=== PATIENT | male | born 1945 | race Caucasian/White ===

== ENCOUNTER 2020-10-25 06:53 | Inpatient (IN) | payer MEDICARE ==
[2020-10-25] MEDS ORDERED: Ondansetron PF 4 MG/2 ML Vial ONE ×2 (06:56→09:26)
[2020-10-25 07:30] LABS: #Eosinphils 0.2 thou/uL (0.0-0.7); #Lymphocytes 1.3 thou/uL (1.20-3.40); #Monocytes 0.8 thou/uL (0.11-0.59); #Neutrophils 6.9 thou/uL (1.40-6.50); %Basophils 0.3 % (0.0-1.0); %Eosinophils 2.1 % (0.0-10.0); %Lymphocytes 13.9 % (21.0-51.0); %Monocytes 8.5 % (0.0-10.0); %Neutrophils 75.2 % (42.0-75.0); Hemoglobin 7.8 g/dL (14.0-18.0); Mean Corpuscular HGB CONC 32.4 g/dL (32.0-36.0); Mean Corpuscular Hemoglobin 27.9 pg (27.0-31.0); Mean Corpuscular Volume 86.2 fL (78.0-98.0); Mean Platelet Volume 9.8 fL (7.4-10.4); Platelet Count 159 thou/uL (130-400); RBC Distribution Width 16.1 % (11.5-14.5); Red Blood Cell (RBC) Count 2.79 mill/uL (4.70-6.10); White Blood Cell (WBC) Count 9.2 thou/uL (4.8-10.8)
[2020-10-25] MEDS ORDERED: PHENYLEPHRINE-NS 100 MCG/ML 10 ML SYRINGE ONE (09:26)
[2020-10-25] MEDS ORDERED: Lidocaine 1% PF 5 ML VIAL ONE (09:26)
[2020-10-25] MEDS ORDERED: Metoclopramide HCl 10 MG/2 ML VIAL ONE (09:26)
[2020-10-25] MEDS ORDERED: PROPOFOL 200 MG/20 ML VIAL ONE (09:26)
[2020-10-25] MEDS ORDERED: ePHEDrine 50 MG/ML VIAL ONE (09:26)
[2020-10-25] MEDS ORDERED: Dextrose 50% Abboject 50 ML SYRINGE SLOW IVP PRN (10:37)
[2020-10-25 11:14] LABS: Hemoglobin 7.4 g/dL (14.0-18.0)
[2020-10-25] MEDS ORDERED: Metoclopramide HCl 10 MG/2 ML VIAL IVP SCH (12:15)
[2020-10-25] MEDS ORDERED: Famotidine/PF 20 mg/2ml Vial ONE (12:56)
[2020-10-25] MEDS ORDERED: Fentanyl 100 MCG/2 ML VIAL ONE ×2 (12:56→14:17)
--- NOTE | 2020-10-25 13:56 | CON ---
DATE OF CONSULTATION: 10/25/2020 REASON FOR CONSULTATION: Hematemesis, history of cirrhosis. CONSULTING PROVIDER: Dr. Rebollar. HISTORY OF PRESENT ILLNESS: The patient is a 75-year-old male with past medical history of GERD, anemia, diabetes, hypertension, pancreatitis, liver nodules, status post possible TACE procedure, and cirrhosis of the liver complicated by liver nodule/HCC, presenting with complaints of hematemesis. He states that he was in his usual state of health until yesterday afternoon when he experienced sudden onset nausea with vomiting of bright red blood. This was subsequently followed by an additional episode of hematemesis approximately 1 to 2 hours later that ultimately prompted him to seek healthcare assistance at [facility]. There, he was noted to have a decreased H and H and given his history of cirrhosis, he was ultimately transferred to [facility] in [place] for further evaluation. Upon further interviewing the patient, he states that he did have those two episodes of hematemesis yesterday in addition to an episode of hematemesis upon arrival in the ER here at [facility]. However, he did have one additional episode of vomiting here within the last 1 to 2 hours that was clear in coloration. He also endorses over the last month that he has been having increased abdominal bloating and fullness in addition to progressively worsening weakness during the same time period. He also noticed a change in his bowel habits having approximately 1 to 2 semi-solid bowel movements per day (Tumtum 5) with no difficulty with defecation. Otherwise, he denies any fevers, chills, overt melena, hematochezia, dysphagia, odynophagia, abdominal pain, constipation, weight loss, lower extremity edema, encephalopathy, or jaundice. Of note, he states his last upper endoscopy was approximately 1 to 2 years ago for the evaluation of acid reflux for which he had normal findings. He is deemed current currently being followed by Dr. Nolen in the [place] for his chronic liver disease. REVIEW OF SYSTEMS: A 10-category review of systems was obtained with all responses negative except for the pertinent positives as listed in HPI. PAST MEDICAL HISTORY: As per HPI. PAST SURGICAL HISTORY: Abdominal hernia repair, inguinal hernia repair, appendectomy, tonsillectomy, and bilateral cataract repair. FAMILY HISTORY: Denies any GI malignancies. SOCIAL HISTORY: Denies any tobacco, alcohol, or illicit drug use. OUTPATIENT MEDICATIONS: Reviewed. ALLERGIES: PENICILLIN. PHYSICAL EXAMINATION: VITAL SIGNS: Temperature 97.7, pulse 84, blood pressure 131/66, respiratory rate 20, and saturating 97% on room air. GENERAL: The patient was lying in bed, in no acute distress. Alert and oriented x4. HEENT/NECK: Normocephalic, atraumatic. Neck is supple. No JVD or scleral icterus noted. CARDIOVASCULAR: Regular rate and rhythm with no discernible murmurs, gallops, or rubs. RESPIRATORY: Clear to auscultation bilaterally with no discernible wheezes or rales. ABDOMEN: Normoactive bowel sounds. Soft. [id number] abdominal distention with no pain to palpation. Tympanic to percussion along all abdominal quadrants with possible shifting dullness. EXTREMITIES: 1+ bilateral lower extremity edema was seen extending to mid wiley. LABORATORY DATA: CBC with a white blood cell count of 9.2, hemoglobin 7.8, hematocrit 24, and platelets 151. INR 1.5. Chemistry with a sodium of 134, potassium 4.7, BUN 26, and creatinine 1.3. AST 37, ALT 56, total bilirubin 1.3. Calculated MELD score of 18. IMAGING DATA: No current GI imaging is available for review. ASSESSMENT AND PLAN: The patient is a 75-year-old male with past medical history of gastroesophageal reflux disease, anemia, diabetes, hypertension, pancreatitis, and cirrhosis of the liver complicated by possible hepatocellular carcinoma, status post TACE/radiation, bilateral lower extremity edema and possible ascites, presenting with hematemesis, concerning for an upper gastrointestinal bleeding. Hematemesis/upper gastrointestinal bleedin. The patient is presenting with approximately 3 episodes of hematemesis characterized as bright red blood with mild nausea associated with it. However, he denies any additional symptoms including abdominal pain, dysphagia, or odynophagia. He adds that he has been having a change in his bowel habits for the last month, which may be indicative of slow gastrointestinal bleeding during this particular point in time, but it is difficult to say at this juncture. With his history of cirrhosis, this is concerning for gastrointestinal bleeding with the differential including esophageal varices bleeding, erosive esophagitis, portal hypertensive gastropathy, arteriovenous malformation, Dieulafoy lesion, peptic ulcer disease, and/or gastrointestinal neoplasm. Given his negative esophagogastroduodenoscopy 1 to 2 years ago, the likelihood of malignancy is low. 2. Recommendations: a. We would continue to trend his H and H and transfuse as necessary to maintain an H and H of 04/04. b. Continue to monitor clinically for signs of active gastrointestinal bleeding. c. We would place the patient on a PPI drip as well as an octreotide drip in light of gastrointestinal bleeding in a cirrhotic patient. d. We would place the patient on ciprofloxacin 400 mg b.i.d. in light of gastrointestinal bleeding in a cirrhotic patient and his allergy to penicillin. e. Continue the patient on n.p.o. status. f. We would give metoclopramide 10 mg IV x1 to help remove any stomach contents or clotted blood that might interfere with esophagogastroduodenoscopy. g. We would plan for esophagogastroduodenoscopy later today for further evaluation. Cirrhosis: 1. The patient is presenting with a history of cirrhosis with a possible etiology being chronic alcohol abuse versus fatty liver (the patient could not discriminate between the two). At this point, he is coming in with decompensated disease as evidenced by the presence of bilateral lower extremity edema. Possible ascites and now upper gastrointestinal bleeding. His current MELD score is calculated at 18 with a Child-Andersen classification B. He is currently being followed by GI physician in the [place] (Dr. Nolen) with plans for possible liver transplantation at one point in time, but given the patient's advanced age and probable liver cancer, this was deemed not a candidate for liver transplant. His last upper endoscopy was 1 to 2 years ago with no evidence of esophageal varices. It is unknown when his last colonoscopy for screening was. 2. Recommendations: a. We would consider obtaining a right upper quadrant ultrasound during this admission for evaluation of possible liver nodules and/or extension of hepatocellular carcinoma contributing to worsening liver disease. b. We would avoid any hepatotoxic medications. c. We would defer outpatient management to his current GI specialist once discharged from the hospital. We will continue to follow. Please call with any questions. Job ID: [id number]
--- NOTE | 2020-10-25 14:56 | OP ---
DATE OF PROCEDURE: 10/25/2020 PROCEDURE PERFORMED: Esophagogastroduodenoscopy with band ligation. INDICATION FOR PROCEDURE: Hematemesis with a history of cirrhosis. DESCRIPTION OF PROCEDURE: After the risks and benefits of the procedure were explained to the patient including risks of bleeding, infection, perforation, reactions to anesthesia, aspiration, and/or pain, informed consent was obtained. The patient was then taken to the endoscopy suite, where general anesthesia was administered followed by endotracheal tube intubation. Once the patient was intubated and sedated, he was maneuvered into the left lateral decubitus position. Using the standard gastroscope, it was then advanced into the mouth with intubation of the esophagus, stomach, and the proximal small intestines with the findings listed below. The patient tolerated the procedure well with no immediate perioperative complications. On conclusion of the procedure, all equipment was removed from the patient. He was transferred to PACU in satisfactory condition. Given his positive COVID status, this was done in a negative pressure room and transferred to a negative pressure room within PACU. FINDINGS: Esophagus: Normal-appearing mucosa was seen in the proximal and mid esophagus; however, large varices were seen in the distal esophagus (grade 2) with innumerable red sherin sign overlying the esophageal mucosa and the esophageal varices in this region. There was also a mypu-fu-[id number] amount of bright red blood in this region as well, but upon irrigation and suctioning, no active bleeding was seen initially. On further examination of the red sherin and the esophageal varices, there were three columns of large esophageal varices, one of which exhibited a 1 to 2 fibrin nipple/clot overlying the varix itself, but initially did not have any evidence of bleeding. Given the increased risk of bleeding from the red sherin sign or this fibrin clot, the scope was then removed from the patient with the [employer] Super 7 band ligator attached to the scope. The scope was then advanced back into the distal esophagus, where one initial band was performed in the distal esophagus. After that initial placement of that one band, upon withdrawing the scope just slightly, a significant amount of bleeding was noted from the fibrin clot with bright red blood seen hitting the opposite wall of the esophagus, at which point, the active bleeding site then underwent band ligation with good hemostasis achieved and no further bleeding seen at the end of maneuver. One additional band was put in the distal esophagus overlying a larger area of red sherin sign given its high risk of bleeding in the future. At the end of these maneuvers, there was no active bleeding seen. Otherwise in the distal esophagus, there was no evidence of ulcerations or mass lesions. Stomach: Upon initial entry into the stomach, there was a axeu-[id number] amount of retained bright red blood that was seen throughout the gastric cardia, fundus, and proximal body. With aggressive irrigation and suctioning, adequate visualization of the gastric mucosa was then achieved of the mucosa seen. The mucosa exhibited an increased erythematous type appearance in a mosaic-type pattern extending from the cardia into the antrum that was mildly friable to the passage of the scope. Otherwise, there were no other underlying abnormalities. Normal-appearing mucosa was then seen within the gastric antrum and incisura. There was no evidence of erosions, ulcerations, mass lesions, or active bleeding. There was no evidence of gastric varices on gastric retroflexion as well. Duodenum: A 6 to 7 mm clean-based irregularly shaped cratered ulcer was seen in the duodenal bulb and extending into the duodenal sweep. However, it did not display any high-risk stigmata (no evidence of red spots, fibrin clot, adherent clot) and was fairly bland in appearance. Otherwise, the remainder of the mucosa within the duodenal bulb appeared normal. No biopsies were taken from this particular lesion. Normal-appearing mucosa was then seen within the second portion of the duodenum. IMPRESSION: 1. Large (grade 2) varices seen in the distal esophagus with innumerable red sherin sign and one varix exhibiting a fibrin clot that then later showed significant active bleeding, now status post band ligation x3 with good hemostasis achieved. 2. Moderate to severe portal hypertensive gastropathy. 3. A 6 to 7 mm clean-based ulceration within the duodenal bulb (unlikely to be the source of the patient's recent bleed). 4. No evidence of gastric varices. RECOMMENDATIONS: 1. We would continue to trend his H and H and transfuse as necessary to maintain H and H of 7/21. 2. Continue to monitor clinically for signs of active GI bleeding. 3. We will continue the patient on PPI drip for 24 hours, then transfer to pantoprazole 40 mg IV b.i.d. 4. We would continue the patient on the octreotide drip for total duration of therapy of 72 hours. 5. Continue ciprofloxacin 400 mg IV b.i.d. in light of a cirrhotic patient with active GI bleeding/infection prophylaxis. 6. We will keep the patient n.p.o. for now in case urgent repeat upper endoscopy is needed. Could consider advancing the patient's diet to a clear liquid diet tomorrow and advance as tolerated. 7. The patient will ultimately need to be placed on nonselective beta-blockade prior to discharge, but would hold on that for now until the patient's status is stabilized. We will continue to follow. Please call with any questions. Job ID: [id number]
[2020-10-25 15:34] LABS: SARS-CoV-2 NAA Rapid Test DETECTED (NotDetected)
[2020-10-25] MEDS: Dextrose 5% in Water 1,000 ML IV PRN (16:26)
[2020-10-25 16:32] VITALS: BMI 22.1
[2020-10-25] MEDS: Pantoprazole 80 MG in Sodium Chloride 0.9% 100 ML IVPB SCH (16:51)
[2020-10-25 19:00] LABS: Hemoglobin 7.4 g/dL (14.0-18.0)
[2020-10-25] MEDS: Morphine 4 MG/ML VIAL SLOW IVP PRN (23:16)
[2020-10-25] MEDS: Ondansetron PF 4 MG/2 ML Vial IVP PRN (23:43)
--- NOTE | 2020-10-26 00:14 | PDOC.HHP ---
Hospitalist HPI Vomiting blood History of Present Illness: Patient is 75-year-old male with PMH of DM type 2, HTN, Cirrhosis (with hx of ascites), fatty liver disease, and ?liver nodules who presents to the ED from [facility] with vomiting blood since yesterday. He said he vomited bright red blood 2 times yesterday and one time today. He denies abdominal pain, melena, hematochezia, or diarrhea. He states he used to drink alcohol occasionally, he stopped 1 year ago. He denies history of hepatitis C or hepatitis B. In the outside ED, Hgb: 7.7, INR: 1.5. Allergies/Adverse Reactions: Allergy/AdvReac Type Severity Reaction Status Date / Time Penicillins Allergy Verified 10/25/20 07:24 Home Medications: Medication Instructions Recorded Confirmed Type Esomeprazole Magnesium [Nexium 20 mg PO DAILY 10/25/20 10/25/20 History 24Hr] Ferrous Sulfate [Iron] 325 mg PO BID 10/25/20 10/25/20 History Insulin Detemir [Levemir Flextouch] 60 unit SQ DAILY 10/25/20 10/25/20 History Lisinopril 5 mg PO DAILY 10/25/20 10/25/20 History Psyllium Husk [Metamucil] 1 tab PO BID 10/25/20 10/25/20 History sitaGLIPtin Phos/metFORMIN HCl 1 each PO BID 10/25/20 10/25/20 History [Janumet 50-1,000 mg Tablet] Past History: PMHx: DM type 2, HTN, Cirrhosis (with hx of ascites), fatty liver disease, and ?liver nodules PSHx: Cataract surgery FHx: Father bladder cancer Social: Never smoker, denies drug use, used to drink alcohol occasionally but quit about a year ago Hospitalist HPI ROS Constitutional: denies: fever, chills Eyes: denies: vision change ENT: denies: throat pain Respiratory: denies: shortness of breath Cardiovascular: denies: chest pain Gastrointestinal: reports: nausea, vomiting. denies: abdominal pain, diarrhea, melena, hematochezia Genitourinary: denies: dysuria Skin: denies: rash Hospitalist Exam Vitals: Vital Signs (12 hours) Temp Pulse Ox 10/25/20 20:00 98 F 95 10/25/20 19:25 97 10/25/20 16:00 97.9 F 10/25/20 15:41 95 Weight Weight 150 lb Most Recent Monitor Data Heart Rate from ECG 68 NIBP 125/49 NIBP BP-Mean 74 Respiration from ECG 14 SpO2 98 General Appearance: NAD, awake alert Eye: PERRL ENT: moist mucosa Neck: supple Heart: RRR, no murmur Respiratory: CTAB, no tachypnea Gastrointestinal: soft, non-tender, normal bowel sounds Gastrointestinal - other findings: distended Extremities: 2+ LE edema Skin: normal turgor Neurological: normal sensation to touch, no weakness Musculoskeletal: normal strength Psychiatric: A&O x 3 Hospitalist Results Result Diagrams: 10/25/20 18:47 Lab results: Laboratory Last Values WBC 9.2 thou/uL (4.8-10.8) 10/25/20 07:22 RBC 2.79 mill/uL (4.70-6.10) L 10/25/20 07:22 Hgb 7.4 g/dL (14.0-18.0) L 10/25/20 18:47 Hct 23.3 % (42.0-52.0) L 10/25/20 18:47 MCV 86.2 fL (78.0-98.0) 10/25/20 07:22 MCH 27.9 pg (27.0-31.0) 10/25/20 07:22 MCHC 32.4 g/dL (32.0-36.0) 10/25/20 07:22 RDW 16.1 % (11.5-14.5) H 10/25/20 07:22 Plt Count 159 thou/uL (130-400) 10/25/20 07:22 MPV 9.8 fL (7.4-10.4) 10/25/20 07:22 Neutrophils % 75.2 % (42.0-75.0) H 10/25/20 07:22 Lymphocytes % 13.9 % (21.0-51.0) L 10/25/20 07:22 Monocytes % 8.5 % (0.0-10.0) 10/25/20 07:22 Eosinophils % 2.1 % (0.0-10.0) 10/25/20 07:22 Basophils % 0.3 % (0.0-1.0) 10/25/20 07: Neutrophils # 6.9 thou/uL (1.40-6.50) H 10/25/20 07:22 Lymphocytes # 1.3 thou/uL (1.20-3.40) 10/25/20 07:22 Monocytes # 0.8 thou/uL (0.11-0.59) H 10/25/20 07:22 Eosinophils # 0.2 thou/uL (0.0-0.7) 10/25/20 07: Basophils # 0.0 thou/uL (0.0-0.2) 10/25/20 07:22 POC Glucose 95 mg/dL (70-100) 10/25/20 20:01 Influenza A RNA INAAT Not Detected (NotDetected) 10/25/20 14:05 Influenza B RNA INAAT Not Detected (NotDetected) 10/25/20 14:05 SARS-CoV-2 Rap RNA(RT-PCR) DETECTED (NotDetected) A* 10/25/20 14:05 Blood Type O POSITIVE 10/25/20 07:45 Antibody Screen NEGATIVE 10/25/20 07:22 Hospitalist H&P A/P (1) GI bleed Code(s): K92.2 - GASTROINTESTINAL HEMORRHAGE, UNSPECIFIED Status: Acute Assessment and Plan: Patient presented with upper GI bleed. Likely from varices given his history of cirrhosis. H&H stable. VSS. Plan: -monitor H&H -protonix and octreotide drip -GI consulted (2) Decompensated hepatic cirrhosis Code(s): K72.90 - HEPATIC FAILURE, UNSPECIFIED WITHOUT COMA; K74.60 - UNSPECIFIED CIRRHOSIS OF LIVER Status: Chronic Assessment and Plan: cause not clear at this time. Possibly from fatty liver disease. He also reports liver nodules, not sure this is HCC. Plan: -liver US -GI consulted (3) DM type 2 (diabetes mellitus, type 2) Status: Chronic Assessment and Plan: -SS insulin ACHS (4) HTN (hypertension) Code(s): I10 - ESSENTIAL (PRIMARY) HYPERTENSION Status: Chronic Assessment and Plan: -hold home meds for now due to GI bleed
[2020-10-26] MEDS: Pantoprazole 80 MG in Sodium Chloride 0.9% 100 ML IVPB SCH ×2 (03:41→14:14)
[2020-10-26 03:57] LABS: #Eosinphils 0.2 thou/uL (0.0-0.7); #Monocytes 0.5 thou/uL (0.11-0.59); #Neutrophils 5.1 thou/uL (1.40-6.50); %Basophils 0.2 % (0.0-1.0); %Eosinophils 3.3 % (0.0-10.0); %Lymphocytes 14.2 % (21.0-51.0); %Monocytes 7.8 % (0.0-10.0); %Neutrophils 74.5 % (42.0-75.0); Hemoglobin 7.8 g/dL (14.0-18.0); Mean Corpuscular HGB CONC 32.7 g/dL (32.0-36.0); Mean Corpuscular Hemoglobin 28.2 pg (27.0-31.0); Mean Corpuscular Volume 86.3 fL (78.0-98.0); Mean Platelet Volume 9.8 fL (7.4-10.4); Platelet Count 139 thou/uL (130-400); RBC Distribution Width 16.1 % (11.5-14.5); Red Blood Cell (RBC) Count 2.76 mill/uL (4.70-6.10); White Blood Cell (WBC) Count 6.8 thou/uL (4.8-10.8)
[2020-10-26 04:13] LABS: Anion Gap 12 mmol/L (10-20); BUN (Urea Nitrogen) 22 mg/dL (8.4-25.7); Calc. Creatinine Clearance 48 mL/min (70-130); Calcium 7.7 mg/dL (7.8-10.44); Carbon Dioxide 20 mmol/L (23-31); Chloride 107 mmol/L (98-107); Glucose 189 mg/dL (83-110); Potassium 4.4 mmol/L (3.5-5.1); Sodium 135 mmol/L (136-145)
--- NOTE | 2020-10-26 07:55 | ULT ---
ULTRASOUND ABDOMEN LIMITED: (RIGHT UPPER QUADRANT) DATE: 10/26/2020 HISTORY: 75-year-old male with cirrhosis and nausea. COMPARISON: None FINDINGS: Moderate amount of free fluid in the right upper quadrant, and a large amount of free fluid in the ri ght lower quadrant. Gallbladder distended. Gallbladder wall thickness 3 mm. No gallstone identified. No definite sludge. Negative sonographic [place] sign. Common duct caliber 4 mm. Right kidney: No hydronephrosis Liver: Nodular margins. Pancreas: Mostly obscured. IMPRESSION: 1) ascites. 2) cirrhosis 3) no cholelithiasis identified
[2020-10-26] MEDS: Ondansetron PF 4 MG/2 ML Vial IVP PRN (08:35)
[2020-10-26] MEDS ORDERED: FLU VACC QS2020-21(65YR UP)/PF 240 MCG/0.7 ML SYRINGE IM ONE (09:00)
[2020-10-26] MEDS ORDERED: Furosemide 20 MG TAB PO SCH (10:30)
[2020-10-26] MEDS ORDERED: Spironolactone 25 MG TAB PO SCH (10:30)
[2020-10-26 10:34] LABS: Hemoglobin 8.4 g/dL (14.0-18.0)
--- NOTE | 2020-10-26 10:47 | PRG ---
DATE OF SERVICE: 10/26/2020 SUBJECTIVE: Mr. Vallejo has had no melena, no emesis since yesterday. He has been mildly nauseated. He is not having any abdominal pain, but his abdomen is distended with ascites. It does not appear he has been on any diuretics as an outpatient, but he does say that he had paracentesis in the past. He has been n.p.o. He has been afebrile and hemodynamically stable. No other complaints. OBJECTIVE: VITAL SIGNS: Temperature 97.7, blood pressure 137/76, pulse 95, 97% oxygen saturation on room air. GENERAL: Chronically ill, but nontoxic, sitting up in bed comfortably, in no distress. MENTAL: He is alert and oriented. He is quick with his responses, though a bit hazy on details of his history. HEART: Regular rate and rhythm. LUNGS: Clear to auscultation bilaterally. ABDOMEN: Distended with ascites, but not tense. Bowel sounds present. Soft, nontender to palpation. EXTREMITIES: No peripheral edema. LABORATORY STUDIES: Hemoglobin stable at 7.8, WBC 6.8, platelets 139. Sodium 135, potassium 4.4, BUN 22, creatinine 1.24. COVID PCR was positive. He is now on respiratory isolation. ASSESSMENT AND PLAN: 1. Esophageal varices with hemorrhage, status post variceal band ligation x3 with Dr. Lucero yesterday. There has been no further evidence of overt bleeding since the procedure. The patient will need to remain on octreotide drip for 72 hours after the procedure, which would mean continuing through at least the Friday evening. Plan is to start a nonselective beta anand on hospital discharge. 2. Duodenal ulcer. This was clean base, not felt to be the source of his bleeding. He is on IV pantoprazole, now switched to oral pantoprazole at discharge. 3. Ascites. The patient reports having had paracentesis in the past, but he had not been on any diuretics. I am going to go ahead and start low-dose Lasix and spironolactone today. 4. We will start him on a clear liquid diet possibly advance diet further tomorrow if he remains stable with no further evidence of repeat bleeding. Job ID: [id number]
--- NOTE | 2020-10-26 11:31 | PDOC.CONS ---
- Consultation Encounter Date: 10/26/20 Encounter Time: 11:30 Dictation # [id number] I ordered liver profile, lactic acid, thank you
--- NOTE | 2020-10-26 12:22 | CON ---
DATE OF CONSULTATION: 10/26/2020 REQUESTING PHYSICIAN: Kristina Vega MD. REASON FOR CONSULTATION: Requested for critical care management. The patient has been interviewed and examined in the intensive care unit. Chart has been reviewed and reports have been reviewed. 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 He has been followed for cirrhosis and has had a paracentesis. He has never had a bleeding complication. He was hospitalized last September for sepsis, was told he had a staph infection that came from the skin, was treated for 7 days in the hospital, says he had a kidney infection at that time in [place]. He was discharged and was feeling very weak and was found to have a hemoglobin of 4 at that time. He says he has not had any melenic stools. On the day prior to consultation, the patient presented with several episodes of gross hematemesis and underwent upper endoscopy on October 25, revealing bleeding esophageal varices, which were banded, gastric gastropathy and bleeding duodenal ulcer. He was placed on ciprofloxacin 400 mg IV b.i.d., Protonix and Protonix drip and octreotide. Today, the patient states that he has had no additional episodes of hematemesis, though he is having dry heaves. He continues to deny melena. His abdomen is very distended and he says he is approximately 2-pant sizes bigger than in the past. His serial hemoglobins have been 7.8, 7.4, and currently 8.4. Platelet count is 159, 139. He is typed and crossed and may have received blood. The patient also presents as COVID positive. He denies anosmia or loss of taste. He has intermittent headaches and sometimes takes nonsteroidal anti-inflammatory, perhaps approximately once a week. His was COVID positive approximately 18 days prior to admission. The exposure is unknown. He states he did not know he was COVID positive until his admission here. He denies any shortness of breath, but states that a dry cough had induced his vomiting when he had hematemesis. He denies dyspnea on exertion except related to his anemia. He denies any fever, chills, or sweats. He denies any alcohol use. He is a nonsmoker. PAST MEDICAL HISTORY: Diabetes, hypertension, nonalcoholic steatohepatitis with cirrhosis, high blood pressure, anemia, recent sepsis as described above, pancreatitis, gastroesophageal reflux disease. PAST SURGICAL HISTORY: Paracentesis, cataract surgery. FAMILY HISTORY: Bladder cancer. SOCIAL HISTORY: Nonsmoker, nondrinker. Does take nonsteroidal anti-inflammatories on occasion. REVIEW OF SYSTEMS: CONSTITUTIONAL: Denies fever, chills, or night sweats. EYES: Denies any yellowing. HEAD AND NECK: Occasional headaches. PULMONARY: Denies shortness of breath. Has nonproductive cough. No dyspnea on exertion, sleep apnea, asthma, emphysema, or bronchitis. CARDIAC: No chest pain. No history of angina or coronary artery disease. Hypertension, controlled. GASTROINTESTINAL: As stated in HPI. GENITOURINARY: As stated in HPI. He denies any dysuria, frequency, incomplete emptying, burning. SKIN: No new rashes. No yellowing. PHYSICAL EXAMINATION: GENERAL: The patient is awake, alert, oriented. He is in no acute distress. VITAL SIGNS: His temperature max is 98.6. He weighs is 150 pounds. BMI is 22.1. His heart rate is regular in the high 70s. His input and output is positive over the last 4 hours of admission of 706 cc. He is on drip as stated above. His urine output is adequate through Osborn catheter 200 mL. He is receiving Lasix p.r.n. and D5W p.r.n., octreotide, Cipro, pantoprazole drip, Aldactone, Reglan p.r.n., and Zofran p.r.n. HEENT: Normocephalic, atraumatic. Pupils equal, round, and reactive to light. No icterus. Conjunctivae are clear. Ears are intact. Nasal passages with good airflow. Oropharynx, tongue is midline. The lips have dried blood and are very dry. Color is normal. NECK: Supple. No adenopathy, thyromegaly, bruits, or masses. LUNGS: Clear to auscultation. CARDIAC: Regular rate and rhythm without murmur, rub, click, or gallop. ABDOMEN: Quiet, distended, tympanic, with positive fluid waves, and ballotable liver. EXTREMITIES: Without clubbing, cyanosis, or edema. No calf tenderness. LABORATORY DATA: Hemoglobin as stated above. White count has been normal. Maximum 9.2. Differential shows monocytosis of 8.5% with lymphopenia of 13.9%. Sodium is 135, potassium 4.4, chloride 107, bicarbonate 20, BUN 22, creatinine 1.2, glucose 189, and calcium 7.7. SARS rapid PCR is positive. Influenza nondetected. IMPRESSION: 1. Acute upper gastrointestinal bleed with blood loss anemia related to: a. Esophageal variceal bleed. b. Duodenal ulcer. c. Risk of re-bleeding is high after banding. 2. Portal hypertension secondary to nonalcoholic steatohepatitis cirrhosis, hepatic steatohepatitis, underlying ascites due to cirrhosis with abdominal distention. 3. Acute blood loss anemia due to upper gastrointestinal bleeding as stated above. 4. COVID positive, asymptomatic. 5. Diabetes with mild hyperglycemia, the patient is n.p.o. due to variceal bleed. 6. Metabolic acidosis, nonanion gap with possible acute kidney injury. 7. Acute kidney injury, creatinine 1.2. RECOMMENDATIONS: 1. Consideration for paracentesis with administration of albumin to avoid hypertension. 2. Maintain hemoglobin in the current range of 7 to 8, so as not to overdistend the esophageal varices. 3. GI to manage Protonix and octreotide drips. 4. Avoid overdiuresis and hepatorenal syndrome. 5. Consider midodrine for the treatment of liver disease and albumin for hypertension. 6. Monitor renal function and metabolic parameters, check lactic acidosis. 7. When comfortable that the patient is not re-bleeding, decrease number of blood draws. 8. Check coags. 9. Check liver profile. 10. I do not see a need at this time for aggressive treatment for COVID infection. He would be a candidate for possible monoclonal antibodies as an outpatient; however, at this time we do not that available for inpatients. Convalescent plasma is an option; however, he has unknown duration of positivity and he should not receive increase intravenous colloids unless absolutely necessary. 11. Supplemental oxygen as needed by nasal cannula. At this time, his oxygen saturations are 98% on room air. There is no indication for using Decadron for treatment of COVID in this patient. It also will increase his risks for bleeding. Thank you for the opportunity to assist in the consultation and comanagement of this patient in the intensive care unit. He is critically ill despite normal hemodynamics. At this time, he is at high risk of decompensation and therefore requires continued monitoring in the ICU until he is off the octreotide drip. Keep him n.p.o. for now. 1. Job ID: [id number]
[2020-10-26 14:01] LABS: INR-International Normal Ratio 1.4; Prothrombin Time 17.6 sec (12.0-14.7)
[2020-10-26 14:07] LABS: Lactic Acid 2.8 mmol/L (0.5-2.2)
[2020-10-26 14:12] LABS: ALT (SGPT) 28 U/L (8-55); AST (SGOT) 58 U/L (5-34); Alkaline Phosphatase 138 U/L (40-110); Bilirubin, Direct 0.6 mg/dL (0.1-0.3); Bilirubin, Total 1.4 mg/dL (0.2-1.2); Sodium 133 mmol/L (136-145)
[2020-10-26] MEDS: Octreotide Acetate 1,250 MCG in Sodium Chloride 0.9% 250 ML 250 ML IVPB SCH (14:14)
[2020-10-26] MEDS: Dextrose 5% in Water 1,000 ML IV PRN (14:22)
--- NOTE | 2020-10-26 17:42 | PDOC.HOSPP ---
- Subjective Encounter Date: 10/26/20 Encounter Time: 17:40 Subjective: f/u for UGI bleed due to esophageal varices post banding x 3/duodenal bulb ulcer receiving Octreotide/Protonix. - Objective Vital Signs & Weight: Vital Signs (12 hours) Temp Pulse Ox 10/26/20 12:00 98.5 F 10/26/20 08:00 97.7 F 10/26/20 07:31 96 10/26/20 06:38 96 Weight Admit Weight 150 lb Weight 150 lb Most Recent Monitor Data Heart Rate from ECG 72 NIBP 133/66 NIBP BP-Mean 88 Respiration from ECG 13 SpO2 97 I&O: 10/25/20 10/26/20 10/27/20 06:59 06:59 06:59 Intake Total 1100 202 Output Total 1450 1125 Balance -350 -923 Result Diagrams: 10/26/20 10:28 10/26/20 13:39 Additional Labs: Accuchecks 10/25/20 10/25/20 20:01 17:48 POC Glucose 95 99 Laboratory Tests 10/25/20 10/25/20 10/25/20 07:22 10:58 14:05 Hgb 7.8 L 7.4 L INR Influenza A RNA INAAT Not Detected Influenza B RNA INAAT Not Detected SARS-CoV-2 Rap RNA(RT-PCR) DETECTED A* 10/25/20 10/26/20 10/26/20 18:47 03:45 13:39 Hgb 7.4 L 7.8 L INR 1.4 Influenza A RNA INAAT Influenza B RNA INAAT SARS-CoV-2 Rap RNA(RT-PCR) Radiology Reviewed by me: Yes (ABD sono - + ascites/cirrhosis) EKG Reviewed by me: Yes (Tele - SR) Hospitalist ROS - Medication Medications: Active Medications Generic Name Dose Route Start Last Admin Trade Name Freq PRN Reason Stop Dose Admin Dextrose/Water 25 gm 10/25/20 10:37 10/25/20 16:26 Dextrose 50% Abboject 50 Ml Syringe SLOW IVP 25 gm PRN PRN Administration Hypoglycemia Octreotide Acetate 1,250 mcg/ 251.25 mls @ 5.025 mls/hr 10/25/20 07:30 10/26/20 14:14 Sodium Chloride IVPB 251.25 mls INF BLESSING Administration 25 MCG/HR Pantoprazole Sodium 80 mg/ 100 mls @ 10 mls/hr 10/25/20 07:30 10/26/20 14:14 Sodium Chloride IVPB 100 mls INF BLESSING Administration Ciprofloxacin/Dextrose 400 mg/ 200 mls @ 200 mls/hr 10/25/20 09:00 10/26/20 08:34 Device IVPB 200 mls Q12HR BLESSING Administration Dextrose/Water 1,000 mls @ 0 mls/hr 10/25/20 10:37 10/26/20 14:22 D5w IV 1,000 mls .Q0M PRN Administration Hypoglycemia As Directed Morphine Sulfate 4 mg 10/25/20 23:12 10/25/20 23:16 Morphine 4 Mg/Ml Vial SLOW IVP 4 mg Q4H PRN Administration Pain Ondansetron HCl 4 mg 10/25/20 09:40 10/26/20 08:35 Ondansetron Pf 4 Mg/2 Ml Vial IVP 4 mg Q6H PRN Administration Nausea/Vomiting Sodium Chloride 10 ml 10/25/20 09:00 10/26/20 08:34 Flush - Normal Saline 10 Ml Syringe IVF 10 ml Q12HR BLESSING Administration Hospitalist Exam Vitals: Vital Signs (12 hours) Temp Pulse Ox 10/26/20 12:00 98.5 F 10/26/20 08:00 97.7 F 10/26/20 07:31 96 10/26/20 06:38 96 Weight Admit Weight 150 lb Weight 150 lb Most Recent Monitor Data Heart Rate from ECG 72 NIBP 133/66 NIBP BP-Mean 88 Respiration from ECG 13 SpO2 97 General Appearance: NAD, awake alert Eye: PERRL, anicteric sclera ENT: normocephalic atraumatic, no oropharyngeal lesions Neck: supple, symmetric, no JVD, no thyromegaly, no lymphadenopathy Heart: RRR, no gallops, no rubs, normal peripheral pulses Heart - other findings: S1, S2 Respiratory: CTAB, no wheezes, no rales, no ronchi, normal chest expansion Gastrointestinal: soft, normal bowel sounds, no palpable masses, no rigidity Gastrointestinal - other findings: distention Extremities: no cyanosis, no clubbing, no edema Skin: normal turgor Neurological: cranial nerve grossly intact, no new deficit Musculoskeletal: normal tone, generalized weakness Psychiatric: normal affect, oriented to person, oriented to place Hosp A/P (1) Acute GI bleeding Code(s): K92.2 - GASTROINTESTINAL HEMORRHAGE, UNSPECIFIED Status: Acute Plan: Secondary to variceal source s/p banding x 3, continue Protonix/Octreotide gtt, serial H/H (2) Acute blood loss anemia Code(s): D62 - ACUTE POSTHEMORRHAGIC ANEMIA Status: Acute Plan: Serial H/H, resume FeSO4 (3) Esophageal varices with bleeding Code(s): I85.01 - ESOPHAGEAL VARICES WITH BLEEDING Status: Acute Plan: See above for mgmt (4) Decompensated hepatic cirrhosis Code(s): K72.90 - HEPATIC FAILURE, UNSPECIFIED WITHOUT COMA; K74.60 - UNSPECIFIED CIRRHOSIS OF LIVER Status: Chronic Plan: Continue Albumin/Octreotide/Lasix/Spironolactone/Cipro (5) DM type 2 (diabetes mellitus, type 2) Status: Chronic Plan: Resume home Lantus, hold Metformin, ADA, serial accuchecks, ISS - Plan continue antibiotics, social work specialist, DVT proph w/SCDs Continue supportive mgmt Continue Octreotide/Protonix gtt Continue Lasix/Albumin Clear liquids AM lab: CMP, CBC
[2020-10-26] MEDS: Ferrous Sulfate 325 MG TAB PO SCH (21:08)
[2020-10-26] MEDS: HumaLOG 300 UNITS/3 ML VIAL SC PRN (23:18)
[2020-10-27] MEDS: Pantoprazole 80 MG in Sodium Chloride 0.9% 100 ML IVPB SCH ×3 (00:50→09:21)
[2020-10-27 04:31] LABS: #Eosinphils 0.3 thou/uL (0.0-0.7); #Monocytes 0.8 thou/uL (0.11-0.59); #Neutrophils 5.6 thou/uL (1.40-6.50); %Basophils 0.2 % (0.0-1.0); %Eosinophils 3.9 % (0.0-10.0); %Monocytes 10.2 % (0.0-10.0); %Neutrophils 72.8 % (42.0-75.0); Hemoglobin 7.8 g/dL (14.0-18.0); Mean Corpuscular HGB CONC 31.6 g/dL (32.0-36.0); Mean Corpuscular Volume 85.3 fL (78.0-98.0); Mean Platelet Volume 9.9 fL (7.4-10.4); Platelet Count 170 thou/uL (130-400); White Blood Cell (WBC) Count 7.6 thou/uL (4.8-10.8)
[2020-10-27 04:57] LABS: Anion Gap 10 mmol/L (10-20); BUN (Urea Nitrogen) 23 mg/dL (8.4-25.7); Calc. Creatinine Clearance 45 mL/min (70-130); Calcium 7.9 mg/dL (7.8-10.44); Carbon Dioxide 25 mmol/L (23-31); Chloride 103 mmol/L (98-107); Glucose 90 mg/dL (83-110); Potassium 3.9 mmol/L (3.5-5.1); Sodium 134 mmol/L (136-145)
[2020-10-27] MEDS: Ferrous Sulfate 325 MG TAB PO SCH ×2 (08:43→19:39)
[2020-10-27] MEDS: Lisinopril 5 MG TAB PO SCH (08:43)
[2020-10-27] MEDS: Furosemide 20 MG TAB PO SCH (08:43)
[2020-10-27] MEDS: Spironolactone 25 MG TAB PO SCH (08:44)
[2020-10-27] MEDS: Ondansetron PF 4 MG/2 ML Vial IVP PRN (08:46)
[2020-10-27] MEDS ORDERED: Non-Formulary Item 1 EACH (Insulin Detemir [Levemir Flextouch] 100 UNIT/ML Insuln.Pen) SQ SCH (09:00)
[2020-10-27] MEDS ORDERED: INSULIN GLARGINE SC SCH (09:00)
[2020-10-27 09:32] LABS: Sodium 133 mmol/L (136-145)
[2020-10-27] MEDS ORDERED: Pantoprazole 80 MG, Admixture Fee 1 EACH in Sodium Chloride 0.9% 100 ML IVPB SCH (11:30)
--- NOTE | 2020-10-27 11:54 | PDOC.HOSPP ---
- Subjective Encounter Date: 10/27/20 Encounter Time: 11:52 Subjective: Mr. Vallejo was seen today in follow-up of Esophageal varices. He is sitting up in bed, and has no complaints. - Objective Vital Signs & Weight: Vital Signs (12 hours) Temp Pulse BP Pulse Ox 10/27/20 08:43 73 127/70 10/27/20 08:00 92 L 10/27/20 06:42 93 L 10/27/20 04:00 98.1 F 10/27/20 02:32 96 10/27/20 00:00 98.2 F Weight Admit Weight 150 lb Weight 150 lb Most Recent Monitor Data Heart Rate from ECG 76 NIBP 127/70 NIBP BP-Mean 89 Respiration from ECG 12 SpO2 92 I&O: 10/26/20 10/27/20 10/28/20 06:59 06:59 06:59 Intake Total 1100 592 Output Total 1450 2925 Balance -350 -1713 Result Diagrams: 10/27/20 03:58 10/27/20 09:12 Additional Labs: Accuchecks 10/27/20 10/27/20 10/26/20 08:26 06:14 23:09 POC Glucose 139 H 114 H 265 H 10/26/20 18:01 POC Glucose 256 H Hospitalist ROS - Medication Medications: Active Medications Generic Name Dose Route Start Last Admin Trade Name Freq PRN Reason Stop Dose Admin Dextrose/Water 25 gm 10/25/20 10:37 10/25/20 16:26 Dextrose 50% Abboject 50 Ml Syringe SLOW IVP 25 gm PRN PRN Administration Hypoglycemia Ferrous Sulfate 325 mg 10/26/20 21:00 10/27/20 08:43 Ferrous Sulfate 325 Mg Tab PO 325 mg BID BLESSING Administration Furosemide 20 mg 10/27/20 09:00 10/27/20 08:43 Furosemide 20 Mg Tab PO 20 mg DAILY BLESSING Administration Octreotide Acetate 1,250 mcg/ 251.25 mls @ 5.025 mls/hr 10/25/20 07:30 10/26/20 14:14 Sodium Chloride IVPB 251.25 mls INF BLESSING Administration 25 MCG/HR Ciprofloxacin/Dextrose 400 mg/ 200 mls @ 200 mls/hr 10/25/20 09:00 10/27/20 08:44 Device IVPB 200 mls Q12HR BLESSING Administration Dextrose/Water 1,000 mls @ 0 mls/hr 10/25/20 10:37 10/26/20 14:22 D5w IV 1,000 mls .Q0M PRN Administration Hypoglycemia As Directed Insulin Human Lispro 0 units 10/25/20 10:37 10/26/20 23:18 Humalog 300 Units/3 Ml Vial SC 4 unit .MILD SLIDING SCALE PRN Administration Mild Correctional Scale Lisinopril 5 mg 10/27/20 09:00 10/27/20 08:43 Lisinopril 5 Mg Tab PO 5 mg DAILY BLESSING Administration Morphine Sulfate 4 mg 10/25/20 23:12 10/25/20 23:16 Morphine 4 Mg/Ml Vial SLOW IVP 4 mg Q4H PRN Administration Pain Ondansetron HCl 4 mg 10/25/20 09:40 10/27/20 08:46 Ondansetron Pf 4 Mg/2 Ml Vial IVP 4 mg Q6H PRN Administration Nausea/Vomiting Sodium Chloride 10 ml 10/25/20 09:00 10/27/20 08:57 Flush - Normal Saline 10 Ml Syringe IVF 10 ml Q12HR BLESSING Administration Spironolactone 50 mg 10/27/20 08:00 10/27/20 08:44 Spironolactone 25 Mg Tab PO 50 mg QAM-[facility] Administration Hospitalist Exam Vitals: Vital Signs (12 hours) Temp Pulse BP Pulse Ox 10/27/20 08:43 73 127/70 10/27/20 08:00 92 L 10/27/20 06:42 93 L 10/27/20 04:00 98.1 F 10/27/20 02:32 96 10/27/20 00:00 98.2 F Weight Admit Weight 150 lb Weight 150 lb Most Recent Monitor Data Heart Rate from ECG 76 NIBP 127/70 NIBP BP-Mean 89 Respiration from ECG 12 SpO2 92 General Appearance: NAD, awake alert Eye: PERRL, anicteric sclera Heart: RRR, no murmur, no gallops, no rubs, normal peripheral pulses Respiratory: CTAB, no wheezes, no rales, no ronchi, normal chest expansion, no tachypnea Gastrointestinal: soft (Abdominal distention.) Extremities: no cyanosis, 1+ LE edema Hosp A/P (1) Acute blood loss anemia Code(s): D62 - ACUTE POSTHEMORRHAGIC ANEMIA Status: Acute (2) Esophageal varices with bleeding Code(s): I85.01 - ESOPHAGEAL VARICES WITH BLEEDING Status: Acute (3) DM type 2 (diabetes mellitus, type 2) Status: Chronic (4) Decompensated hepatic cirrhosis Code(s): K72.90 - HEPATIC FAILURE, UNSPECIFIED WITHOUT COMA; K74.60 - UNSPECIFIED CIRRHOSIS OF LIVER Status: Chronic (5) HTN (hypertension) Code(s): I10 - ESSENTIAL (PRIMARY) HYPERTENSION Status: Chronic - Plan * Esophageal Varices with bleed- continue Octreotide drip, and Protonix IV * He diet has been advanced * Transfuse to keep hgb between 7 and 8. * Cirrhosis with ascites- agree with therapeutic paracentesis, and continue Prophylaxis for SBP with Cipro * HTN- blood pressure is low normal- start a non-selective beta- anand when tolerated * DM- blood glucose is stable * Patient is stable for transfer out of the ICU
[2020-10-27] MEDS ORDERED: Lidocaine 1% PF 5 ML VIAL ONE (12:22)
[2020-10-27] MEDS ORDERED: Sodium Bicarbonate 2.5 MEQ/5 ML VIAL ONE (12:22)
--- NOTE | 2020-10-27 12:25 | PRG ---
DATE OF SERVICE: 10/27/2020 SUBJECTIVE: Mr. Vallejo is feeling well. He has had no melena or hematemesis. He has remained hemodynamically stable. Abdomen remains distended. He is breathing well. He is tolerating his liquid diet. OBJECTIVE: VITAL SIGNS: Temperature is 98.1, pulse 73, blood pressure 127/70, and 92% oxygen saturation on room air. GENERAL: No acute distress. Sitting up in bed comfortably. HEART: Regular rate and rhythm. LUNGS: Clear to auscultation bilaterally. ABDOMEN: Distended with ascites, not tense. Bowel sounds are present. Nontender to palpation. EXTREMITIES: No peripheral edema. LABORATORY STUDIES: Hemoglobin stable at 7.8, WBC 7.6, and platelets 170. INR 1.4. Sodium 134, potassium 3.9, BUN 23, creatinine 1.33, glucose 139, calcium 7.9. COVID PCR positive. ASSESSMENT AND PLAN: 1. Esophageal varices with hemorrhage, status post variceal band ligation x3 with Dr. Lucero 2 days ago. There has been no further evidence of overt bleeding since the procedure. H and H remained stable. Stick with the plan to remain on octreotide drip for 72 hours after the procedure, which would mean continuing through at least Friday evening. The plan would be to start a nonselective beta anand thereafter, likely tomorrow evening, and continue this as secondary bleeding prophylaxis. 2. Duodenal ulcer. This was clean based and not felt to be the source of his bleeding. He is on IV pantoprazole. Switch to oral pantoprazole at discharge. 3. Ascites. Started low-dose Lasix and spironolactone yesterday. We will go ahead and order diagnostic/therapeutic paracentesis today. 4. Can advance his diet to a low-sodium diet. Job ID: [id number]
--- NOTE | 2020-10-27 14:40 | ULT ---
Paracentesis sonographic guided HISTORY: Symptomatic ascites. FINDINGS: After explaining the procedure and answering all questions, sonographic survey showed a lar ge amount of free fluid throughout the abdomen. Sterile technique, buffered local anesthesia, sonographic guidance, and a right lateral approach were used to carefully advance a 19-gauge Yueh needle and catheter into the free fluid. Catheter was left to drain a total volume of 3.15 L clear yellow liquid. Catheter was removed with minimal fluid remaining. Patient tolerated the procedure well. IMPRESSION : Technically successful sonographic guided paracentesis 3.15 L.
[2020-10-27 15:02] LABS: RBC Count-Automated (BF) 272 /cu.mm; WBC/Nucleated-Auto (BF) 199 uL
[2020-10-27 15:23] LABS: BF Color Yellow; Body Fluid Source Ascites Body Fluid; Clarity Hazy (Clear); Tube # EDTA
[2020-10-27 15:25] LABS: BF Segmented Neutrophils 12 %
[2020-10-27 15:27] LABS: Cell Count Non Hematic 60 %; Lymphocytes 27 %
[2020-10-27] MEDS: HumaLOG 300 UNITS/3 ML VIAL SC PRN ×2 (18:08→19:41)
[2020-10-28 04:33] LABS: #Basophils 0.1 thou/uL (0.0-0.2); #Eosinphils 0.3 thou/uL (0.0-0.7); #Lymphocytes 1.6 thou/uL (1.20-3.40); #Monocytes 1.1 thou/uL (0.11-0.59); #Neutrophils 5.6 thou/uL (1.40-6.50); %Basophils 0.8 % (0.0-1.0); %Eosinophils 3.7 % (0.0-10.0); %Lymphocytes 18.4 % (21.0-51.0); %Monocytes 12.8 % (0.0-10.0); %Neutrophils 64.4 % (42.0-75.0); Hemoglobin 7.8 g/dL (14.0-18.0); Mean Corpuscular HGB CONC 32.3 g/dL (32.0-36.0); Mean Corpuscular Hemoglobin 27.7 pg (27.0-31.0); Mean Corpuscular Volume 85.6 fL (78.0-98.0); Mean Platelet Volume 9.3 fL (7.4-10.4); Platelet Count 190 thou/uL (130-400); RBC Distribution Width 16.1 % (11.5-14.5); White Blood Cell (WBC) Count 8.7 thou/uL (4.8-10.8)
[2020-10-28 04:58] LABS: Anion Gap 13 mmol/L (10-20); BUN (Urea Nitrogen) 22 mg/dL (8.4-25.7); Calc. Creatinine Clearance 41 mL/min (70-130); Calcium 7.7 mg/dL (7.8-10.44); Carbon Dioxide 22 mmol/L (23-31); Chloride 104 mmol/L (98-107); Potassium 3.8 mmol/L (3.5-5.1); Sodium 135 mmol/L (136-145)
[2020-10-28 05:01] LABS: Glucose 44 mg/dL (83-110)
[2020-10-28] MEDS ORDERED: GUAIFENESIN SF SOLN 200 MG/10 ML UDCUP PO PRN (08:29)
[2020-10-28] MEDS ORDERED: Loratadine 10 MG TAB PO PRN (08:29)
[2020-10-28] MEDS ORDERED: Sodium Chloride 0.65% Nasal 44 ML BOT EA NARE PRN (08:29)
[2020-10-28] MEDS ORDERED: Bisacodyl 5 MG TAB PO PRN (08:29)
[2020-10-28] MEDS ORDERED: Calcium Carbonate 500 MG ChewTAB PO PRN (08:29)
[2020-10-28] MEDS ORDERED: Cepastat Lozenges 1 LOZ PO PRN (08:29)
[2020-10-28] MEDS ORDERED: Senokot S 8.6-50 MG TAB PO PRN (08:29)
[2020-10-28] MEDS ORDERED: Loperamide HCl 2 MG CAP PO PRN (08:29)
[2020-10-28] MEDS ORDERED: hydrALAZINE 20 MG/ML VIAL SLOW IVP PRN (08:29)
[2020-10-28] MEDS ORDERED: Melatonin 3 MG TAB PO PRN (08:30)
[2020-10-28] MEDS: Lisinopril 5 MG TAB PO SCH (08:50)
[2020-10-28] MEDS: Furosemide 20 MG TAB PO SCH (08:50)
[2020-10-28] MEDS: Spironolactone 25 MG TAB PO SCH (08:50)
[2020-10-28] MEDS: Ferrous Sulfate 325 MG TAB PO SCH ×2 (08:50→20:43)
[2020-10-28] MEDS: Zinc Sulfate 220 MG CAP PO SCH (09:01)
[2020-10-28] MEDS: Folic Acid 1 MG TAB PO SCH (09:01)
[2020-10-28] MEDS: Cyanocobalamin (Vitamin B-12) 1,000 MCG TAB PO SCH (09:01)
[2020-10-28] MEDS: Ascorbic Acid 500 mg Chewable Tablet PO SCH (09:01)
[2020-10-28] MEDS: Multivitamin W/ Minerals 1 TAB PO SCH (09:02)
[2020-10-28] MEDS: Pantoprazole 40 MG VIAL IVP SCH ×2 (10:34→20:44)
[2020-10-28] MEDS: Insulin Glargine 10 UNITS in Pre-Filled Syringe 1 EACH SC SCH ×2 (10:54→20:43)
--- NOTE | 2020-10-28 11:02 | PRG ---
DATE OF SERVICE: 10/28/2020 SUBJECTIVE: Mr. Vallejo is feeling well. He is not having any abdominal pain or nausea. He is tolerating his regular diet today. He did have paracentesis of 3.15 L yesterday, which went well. Octreotide drip will finish up this afternoon. OBJECTIVE: VITAL SIGNS: Temperature 98.1, pulse 68, blood pressure 103/53, 100% oxygen saturation on room air. GENERAL: No acute distress, sitting up in bed comfortably, eating lunch. HEART: Regular rate and rhythm. LUNGS: Clear to auscultation bilaterally. ABDOMEN: Less distended than yesterday. Bowel sounds present. Soft, nontender to palpation. EXTREMITIES: No peripheral edema. LABORATORY STUDIES: Hemoglobin stable at 7.8, WBC 8.7, platelets 190. INR 1.4. Sodium 135, potassium 3.8, BUN 22, creatinine 1.45, glucose 91. Ascites fluid from yesterday shows 199 WBC's, but only 12% neutrophils. Fluid total protein is 1.2. Ascites fluid culture shows no organisms, few RBC's, no growth at 24 hours. ASSESSMENT/PLAN: 1. Esophageal variceal hemorrhage, status post variceal band ligation x3 with Dr. Lucero 3 days ago. There has been no further evidence of overt bleeding since the procedure. H and H have remained stable. Stick with the plan to remain on octreotide drip through this evening. We will start him on a nonselective beta anand this evening as secondary bleeding prophylaxis. 2. Duodenal ulcer. This is clean based and not felt to be the source of his bleeding. Discharged on oral pantoprazole. 3. Ascites. He had a paracentesis of 3.15 L yesterday. Fluid is negative for SBP. He has been started on Lasix 20 mg daily and spironolactone 50 mg daily. Anticipate the patient could discharge from the hospital tomorrow morning if he remains stable overnight. He should follow up with his emt basic in the [place]. Job ID: [id number]
--- NOTE | 2020-10-28 11:07 | PDOC.HOSPP ---
- Subjective Encounter Date: 10/28/20 Encounter Time: 07:55 Subjective: Patient seen and examined bedside today, no overnight event, patient is doing relatively better, he does not have any ongoing bleeding, his vitals are stable, - Objective Vital Signs & Weight: Vital Signs (12 hours) Temp Pulse Resp BP BP Pulse Ox 10/28/20 08:50 68 10/28/20 08:00 98.1 F 73 18 103/53 L 100 10/28/20 06:01 68 16 121/61 99 10/28/20 03:40 97.5 F L 73 18 99/57 L 96 10/28/20 02:14 98.1 F 71 16 107/54 L 100 Weight Admit Weight 150 lb Weight 150 lb Most Recent Monitor Data Heart Rate from ECG 74 NIBP 132/74 NIBP BP-Mean 93 Respiration from ECG 18 SpO2 95 I&O: 10/27/20 10/28/20 10/29/20 06:59 06:59 06:59 Intake Total 592 1392 Output Total 2925 800 275 Balance -2333 592 -275 Result Diagrams: 10/28/20 03:53 10/28/20 03:53 Additional Labs: Accuchecks 10/28/20 10/28/20 10/27/20 08:02 04:30 19:28 POC Glucose 91 88 250 H 10/27/20 16:45 POC Glucose 267 H EKG Reviewed by me: Yes Hospitalist ROS - Review of Systems ENT: denies: ear pain, ear discharge, nose pain, nose discharge, nose congestion, mouth pain, mouth swelling, throat pain, throat swelling, other Respiratory: denies: cough, dry, shortness of breath, hemoptysis, SOB with excertion, pleuritic pain, sputum, wheezing, other Cardiovascular: denies: chest pain, palpitations, orthopnea, paroxysmal noc. dyspnea, edema, light headedness, other Gastrointestinal: denies: nausea, vomiting, abdominal pain, diarrhea, constipation, melena, hematochezia, other Genitourinary: denies: dysuria, frequency, incontinence, hematuria, retention, other - Medication Medications: Active Medications Generic Name Dose Route Start Last Admin Trade Name Freq PRN Reason Stop Dose Admin Ascorbic Acid 1,000 mg 10/28/20 09:00 10/28/20 09:01 Ascorbic Acid 500 Mg Chewable Tablet PO 1,000 mg DAILY BLESSING Administration Cyanocobalamin 1,000 mcg 10/28/20 09:00 10/28/20 09:01 Cyanocobalamin (Vitamin B-12) 1,000 Mcg Tab PO 1,000 mcg DAILY BLESSING Administration Dextrose/Water 25 gm 10/25/20 10:37 10/25/20 16:26 Dextrose 50% Abboject 50 Ml Syringe SLOW IVP 25 gm PRN PRN Administration Hypoglycemia Ferrous Sulfate 325 mg 10/26/20 21:00 10/28/20 08:50 Ferrous Sulfate 325 Mg Tab PO 325 mg BID BLESSING Administration Folic Acid 1 mg 10/28/20 09:00 10/28/20 09:01 Folic Acid 1 Mg Tab PO 1 mg DAILY BLESSING Administration Furosemide 20 mg 10/27/20 09:00 10/28/20 08:50 Furosemide 20 Mg Tab PO 20 mg DAILY BLESSING Administration Octreotide Acetate 1,250 mcg/ 251.25 mls @ 5.025 mls/hr 10/25/20 07:30 10/26/20 14:14 Sodium Chloride IVPB 251.25 mls INF BLESSING Administration 25 MCG/HR Ciprofloxacin/Dextrose 400 mg/ 200 mls @ 200 mls/hr 10/25/20 09:00 10/28/20 08:52 Device IVPB 200 mls Q12HR BLESSING Administration Dextrose/Water 1,000 mls @ 0 mls/hr 10/25/20 10:37 10/26/20 14:22 D5w IV 1,000 mls .Q0M PRN Administration Hypoglycemia As Directed Insulin Glargine 10 units/ 0.1 mls @ 0 mls/hr 10/28/20 09:00 10/28/20 10:54 Miscellaneous Medication SC 0.1 mls QAM BLESSING Administration Iron/Minerals/Multivitamins 1 tab 10/28/20 09:00 10/28/20 09:02 Multivitamin W/ Minerals 1 Tab PO 1 tab DAILY BLESSING Administration Lisinopril 5 mg 10/27/20 09:00 10/28/20 08:50 Lisinopril 5 Mg Tab PO 5 mg DAILY BLESSING Administration Morphine Sulfate 4 mg 10/25/20 23:12 10/25/20 23:16 Morphine 4 Mg/Ml Vial SLOW IVP 4 mg Q4H PRN Administration Pain Ondansetron HCl 4 mg 10/25/20 09:40 10/27/20 08:46 Ondansetron Pf 4 Mg/2 Ml Vial IVP 4 mg Q6H PRN Administration Nausea/Vomiting Pantoprazole Sodium 40 mg 10/28/20 09:00 10/28/20 10:34 Pantoprazole 40 Mg Vial IVP Not Given Q12HR BLESSING Sodium Chloride 10 ml 10/25/20 09:00 10/28/20 09:00 Flush - Normal Saline 10 Ml Syringe IVF 10 ml Q12HR BLESSING Administration Spironolactone 50 mg 10/27/20 08:00 10/28/20 08:50 Spironolactone 25 Mg Tab PO 50 mg QAM-WM BLESSING Administration Zinc Sulfate 220 mg 10/28/20 09:00 10/28/20 09:01 Zinc Sulfate 220 Mg Cap PO 220 mg DAILY BLESSING Administration Hospitalist Exam Vitals: Vital Signs (12 hours) Temp Pulse Resp BP BP Pulse Ox 10/28/20 08:50 68 10/28/20 08:00 98.1 F 73 18 103/53 L 100 10/28/20 06:01 68 16 121/61 99 10/28/20 03:40 97.5 F L 73 18 99/57 L 96 10/28/20 02:14 98.1 F 71 16 107/54 L 100 Weight Admit Weight 150 lb Weight 150 lb Most Recent Monitor Data Heart Rate from ECG 74 NIBP 132/74 NIBP BP-Mean 93 Respiration from ECG 18 SpO2 95 General Appearance: NAD, awake alert Eye: PERRL, anicteric sclera ENT: normocephalic atraumatic, no oropharyngeal lesions Neck: supple, symmetric, no JVD, no thyromegaly Heart: RRR, no murmur, no gallops, no rubs Respiratory: no wheezes, no rales, no ronchi Gastrointestinal: soft, non-tender, non-distended, normal bowel sounds Gastrointestinal - other findings: Ascites noted Extremities: no cyanosis, no clubbing, no edema Skin: normal turgor, no lesions Neurological: no focal deficits Musculoskeletal: normal tone, normal strength Psychiatric: normal affect, normal behavior Hosp A/P (1) Acute GI bleeding Code(s): K92.2 - GASTROINTESTINAL HEMORRHAGE, UNSPECIFIED Status: Acute Plan: S/p upper endoscopy and esophageal variceal bleed in identified and ligated (2) Acute blood loss anemia Code(s): D62 - ACUTE POSTHEMORRHAGIC ANEMIA Status: Acute Plan: Patient did not require any blood transfusion during this admission, his H&H remained stable after acute episode (3) Esophageal varices with bleeding Code(s): I85.01 - ESOPHAGEAL VARICES WITH BLEEDING Status: Acute Plan: Due to cirrhosis of liver, patient required banding, patient was treated with octreotide drip, (4) GI bleed Code(s): K92.2 - GASTROINTESTINAL HEMORRHAGE, UNSPECIFIED Status: Acute Plan: Due to esophageal variceal bleed and duodenal ulcer (5) DM type 2 (diabetes mellitus, type 2) Status: Chronic Plan: (6) Decompensated hepatic cirrhosis Code(s): K72.90 - HEPATIC FAILURE, UNSPECIFIED WITHOUT COMA; K74.60 - UNSPECI FIED CIRRHOSIS OF LIVER Status: Chronic (7) HTN (hypertension) Code(s): I10 - ESSENTIAL (PRIMARY) HYPERTENSION Status: Chronic (8) Duodenal ulcer Status: Acute - Plan old records reviewed/req, continue antibiotics, DVT proph w/SCDs Currently patient is getting Cipro for SBP prophylaxis given GI bleed and cirrhosis Patient is also on octreotide drip which he will finish end of today, Today we will change Protonix 40 mg IV twice daily, Continue Lasix and Aldactone, will add low-dose of Corgard Discussed with GI Will consider discharging tomorrow We will repeat labs tomorrow
[2020-10-28] MEDS: HumaLOG 300 UNITS/3 ML VIAL SC PRN (12:39)
[2020-10-28] MEDS: Nadolol 40 MG TAB PO SCH (20:44)
[2020-10-28] MEDS: Octreotide Acetate 1,250 MCG in Sodium Chloride 0.9% 250 ML 250 ML IVPB SCH (22:05)
[2020-10-29 04:24] LABS: #Basophils 0.1 thou/uL (0.0-0.2); #Eosinphils 0.3 thou/uL (0.0-0.7); #Lymphocytes 1.6 thou/uL (1.20-3.40); #Monocytes 1.1 thou/uL (0.11-0.59); #Neutrophils 5.9 thou/uL (1.40-6.50); %Basophils 0.6 % (0.0-1.0); %Eosinophils 3.2 % (0.0-10.0); %Monocytes 12.1 % (0.0-10.0); %Neutrophils 66.1 % (42.0-75.0); Hemoglobin 8.3 g/dL (14.0-18.0); Mean Corpuscular HGB CONC 31.7 g/dL (32.0-36.0); Mean Corpuscular Hemoglobin 26.8 pg (27.0-31.0); Mean Corpuscular Volume 84.8 fL (78.0-98.0); Mean Platelet Volume 9.2 fL (7.4-10.4); Platelet Count 195 thou/uL (130-400); RBC Distribution Width 16.4 % (11.5-14.5); Red Blood Cell (RBC) Count 3.09 mill/uL (4.70-6.10); White Blood Cell (WBC) Count 8.9 thou/uL (4.8-10.8)
[2020-10-29 04:46] LABS: Anion Gap 12 mmol/L (10-20); BUN (Urea Nitrogen) 19 mg/dL (8.4-25.7); Calc. Creatinine Clearance 38 mL/min (70-130); Calcium 7.9 mg/dL (7.8-10.44); Carbon Dioxide 23 mmol/L (23-31); Chloride 102 mmol/L (98-107); Glucose 165 mg/dL (83-110); Potassium 4.2 mmol/L (3.5-5.1); Sodium 133 mmol/L (136-145)
[2020-10-29] MEDS: HumaLOG 300 UNITS/3 ML VIAL SC PRN ×2 (06:07→21:22)
[2020-10-29] MEDS: Morphine 4 MG/ML VIAL SLOW IVP PRN (06:15)
[2020-10-29] MEDS: Furosemide 20 MG TAB PO SCH (09:00)
[2020-10-29] MEDS: Lisinopril 5 MG TAB PO SCH (09:00)
[2020-10-29] MEDS: Ascorbic Acid 500 mg Chewable Tablet PO SCH (09:09)
[2020-10-29] MEDS: Cyanocobalamin (Vitamin B-12) 1,000 MCG TAB PO SCH (09:09)
[2020-10-29] MEDS: Zinc Sulfate 220 MG CAP PO SCH (09:09)
[2020-10-29] MEDS: Multivitamin W/ Minerals 1 TAB PO SCH (09:10)
[2020-10-29] MEDS: Folic Acid 1 MG TAB PO SCH (09:10)
[2020-10-29] MEDS: Ferrous Sulfate 325 MG TAB PO SCH ×2 (09:10→21:08)
[2020-10-29] MEDS: Pantoprazole 40 MG VIAL IVP SCH ×2 (09:11→21:08)
[2020-10-29] MEDS: Insulin Glargine 10 UNITS in Pre-Filled Syringe 1 EACH SC SCH ×2 (09:12→21:08)
--- NOTE | 2020-10-29 10:04 | PDOC.HOSPP ---
- Subjective Encounter Date: 10/29/20 Encounter Time: 08:10 Subjective: Patient seen and examined. No new complaints. No overnight events - Objective Vital Signs & Weight: Vital Signs (12 hours) Temp Pulse Resp BP Pulse Ox 10/29/20 08:00 98.2 F 61 18 87/51 L 96 10/29/20 03:40 98.3 F 59 L 16 93/50 L 98 Weight Admit Weight 150 lb Weight 150 lb Most Recent Monitor Data Heart Rate from ECG 74 NIBP 132/74 NIBP BP-Mean 93 Respiration from ECG 18 SpO2 95 I&O: 10/28/20 10/29/20 10/30/20 06:59 06:59 06:59 Intake Total 1392 Output Total 800 1700 Balance 592 -1700 Result Diagrams: 10/29/20 03:50 10/29/20 03:50 Additional Labs: Accuchecks 10/28/20 10/28/20 10/28/20 19:45 16:01 11:38 POC Glucose 183 H 174 H 213 H EKG Reviewed by me: Yes Hospitalist ROS - Review of Systems ENT: denies: ear pain, ear discharge, nose pain, nose discharge, nose congestion, mouth pain, mouth swelling, throat pain, throat swelling, other Respiratory: denies: cough, dry, shortness of breath, hemoptysis, SOB with excertion, pleuritic pain, sputum, wheezing, other Cardiovascular: denies: chest pain, palpitations, orthopnea, paroxysmal noc. dyspnea, edema, light headedness, other Gastrointestinal: denies: nausea, vomiting, abdominal pain, diarrhea, constipation, melena, hematochezia, other Genitourinary: denies: dysuria, frequency, incontinence, hematuria, retention, other Musculoskeletal: denies: neck pain, shoulder pain, arm pain, back pain, hand pain, leg pain, foot pain, other - Medication Medications: Active Medications Generic Name Dose Route Start Last Admin Trade Name Freq PRN Reason Stop Dose Admin Ascorbic Acid 1,000 mg 10/28/20 09:00 10/29/20 09:09 Ascorbic Acid 500 Mg Chewable Tablet PO 1,000 mg DAILY BLESSING Administration Cyanocobalamin 1,000 mcg 10/28/20 09:00 10/29/20 09:09 Cyanocobalamin (Vitamin B-12) 1,000 Mcg Tab PO 1,000 mcg DAILY BLESSING Administration Dextrose/Water 25 gm 10/25/20 10:37 10/25/20 16:26 Dextrose 50% Abboject 50 Ml Syringe SLOW IVP 25 gm PRN PRN Administration Hypoglycemia Ferrous Sulfate 325 mg 10/26/20 21:00 10/29/20 09:10 Ferrous Sulfate 325 Mg Tab PO 325 mg BID BLESSING Administration Folic Acid 1 mg 10/28/20 09:00 10/28/20 09:01 Folic Acid 1 Mg Tab PO 1 mg DAILY BLESSING Administration Furosemide 20 mg 10/27/20 09:00 10/28/20 08:50 Furosemide 20 Mg Tab PO 20 mg DAILY BLESSING Administration Ciprofloxacin/Dextrose 400 mg/ 200 mls @ 200 mls/hr 10/25/20 09:00 10/28/20 20:43 Device IVPB 200 mls Q12HR BLESSING Administration Dextrose/Water 1,000 mls @ 0 mls/hr 10/25/20 10:37 10/26/20 14:22 D5w IV 1,000 mls .Q0M PRN Administration Hypoglycemia As Directed Insulin Glargine 10 units/ 0.1 mls @ 0 mls/hr 10/28/20 21:00 10/28/20 20:43 Miscellaneous Medication SC 0.1 mls HS BLESSING Administration Insulin Glargine 10 units/ 0.1 mls @ 0 mls/hr 10/28/20 09:00 10/29/20 09:12 Miscellaneous Medication SC 0.1 mls QAM BLESSING Administration Insulin Human Lispro 0 units 10/28/20 08:32 10/29/20 06:07 Humalog 300 Units/3 Ml Vial SC 2 units .MODERATE SLIDING SC PRN Administration Moderate Correctional Scale Iron/Minerals/Multivitamins 1 tab 10/28/20 09:00 10/29/20 09:10 Multivitamin W/ Minerals 1 Tab PO 1 tab DAILY BLESSING Administration Lisinopril 5 mg 10/27/20 09:00 10/28/20 08:50 Lisinopril 5 Mg Tab PO 5 mg DAILY BLESSING Administration Morphine Sulfate 4 mg 10/25/20 23:12 10/29/20 06:15 Morphine 4 Mg/Ml Vial SLOW IVP 4 mg Q4H PRN Administration Pain Nadolol 20 mg 10/28/20 21:00 10/28/20 20:44 Nadolol 40 Mg Tab PO 20 mg HS BLESSING Administration Ondansetron HCl 4 mg 10/25/20 09:40 10/27/20 08:46 Ondansetron Pf 4 Mg/2 Ml Vial IVP 4 mg Q6H PRN Administration Nausea/Vomiting Pantoprazole Sodium 40 mg 10/28/20 09:00 10/29/20 09:11 Pantoprazole 40 Mg Vial IVP 40 mg Q12HR BLESSING Administration Sodium Chloride 10 ml 10/25/20 09:00 10/28/20 20:44 Flush - Normal Saline 10 Ml Syringe IVF 10 ml Q12HR BLESSING Administration Spironolactone 50 mg 10/27/20 08:00 10/28/20 08:50 Spironolactone 25 Mg Tab PO 50 mg QAM-WM BLESSING Administration Zinc Sulfate 220 mg 10/28/20 09:00 10/29/20 09:09 Zinc Sulfate 220 Mg Cap PO 220 mg DAILY BLESSING Administration Hospitalist Exam Vitals: Vital Signs (12 hours) Temp Pulse Resp BP Pulse Ox 10/29/20 08:00 98.2 F 61 18 87/51 L 96 10/29/20 03:40 98.3 F 59 L 16 93/50 L 98 Weight Admit Weight 150 lb Weight 150 lb Most Recent Monitor Data Heart Rate from ECG 74 NIBP 132/74 NIBP BP-Mean 93 Respiration from ECG 18 SpO2 95 General Appearance: NAD, awake alert Eye: PERRL, anicteric sclera ENT: normocephalic atraumatic, no oropharyngeal lesions Neck: supple, symmetric, no JVD, no thyromegaly Heart: no murmur, no gallops, no rubs Respiratory: CTAB, no wheezes, no rales, no ronchi Gastrointestinal: soft, non-tender, non-distended, normal bowel sounds Extremities: no clubbing, no edema Skin: normal turgor, no lesions Neurological: no focal deficits Musculoskeletal: normal tone, normal strength Psychiatric: normal affect, normal behavior Hosp A/P (1) Acute GI bleeding Code(s): K92.2 - GASTROINTESTINAL HEMORRHAGE, UNSPECIFIED Status: Acute (2) Acute blood loss anemia Code(s): D62 - ACUTE POSTHEMORRHAGIC ANEMIA Status: Acute (3) Esophageal varices with bleeding Code(s): I85.01 - ESOPHAGEAL VARICES WITH BLEEDING Status: Acute (4) GI bleed Code(s): K92.2 - GASTROINTESTINAL HEMORRHAGE, UNSPECIFIED Status: Acute (5) DM type 2 (diabetes mellitus, type 2) Status: Chronic (6) Decompensated hepatic cirrhosis Code(s): K72.90 - HEPATIC FAILURE, UNSPECIFIED WITHOUT COMA; K74.60 - UNSPECIFIED CIRRHOSIS OF LIVER Status: Chronic (7) HTN (hypertension) Code(s): I10 - ESSENTIAL (PRIMARY) HYPERTENSION Status: Chronic (8) Duodenal ulcer Status: Acute - Plan old records reviewed/req, continue antibiotics, social services director Discontinue octreotide drip Continue Protonix IV while in hospital Continue Cipro while in hospital, We will consider him discharged tomorrow or today depending upon the ride availability, will discuss with the social work Patient prefers to go home but because of his Covid positive status doubt he will be able to get any taxi or about ambulance transfer I am not certain and patient does not have any ride to go home
--- NOTE | 2020-10-29 10:06 | PDOC.DS.DS ---
Provider Date of Admission: 10/25/20 10:01 Date of Discharge: 10/31/20 Admitting Provider: Kristina Vega MD Consultations: Gastroentrology, Pulmonary Primary Care Physician: Vikas Dewitt MD Course Hospital Course: 75-year-old male with PMH of DM type 2, HTN, Cirrhosis (with hx of ascites), fat ty liver disease, and ?liver nodules who presents to the ED from [facility] with vomiting blood since yesterday. He said he vomited bright red blood 2 times yesterday and one time today. He denies abdominal pain, melena, hematochezia, or diarrhea Patient was admitted on October 25, 2020 with acute upper GI bleed, on admission his hemoglobin was 7.8 and remained in that range, gastroenterology was consulted, patient underwent upper endoscopy on the same day, patient was found with large varices in the distal esophagus which was ligated, patient was also found with moderate to severe portal hypertensive gastropathy, there was also clean-based duodenal ulcer, there was no gastric varices. Patient was admitted in ICU, he was treated with Protonix drip and octreotide drip, he was also given IV fluid, he was also given ciprofloxacin for SBP prophylaxis, While in hospital we also did paracentesis but negative for SBP, he is given medicine to reduce portal hypertension. 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 Patient is given oral medication p.o., patient developed a superficial thrombophlebitis while in hospital and patient will benefit with doxycycline Patient seen and examined bedside today, Resuscitation Status: 10/25/20 10:34 Resuscitation Status Routine Resuscitation Status: DNAR: NO Resuscitation Discussed with: Patient Lab Results: 10/29/20 03:50 10/29/20 03:50 Abnormal Lab Results - Last 48 hrs 10/27/20 14:07: Fluid Clarity Hazy H 10/28/20 03:53: Sodium 135 L, Carbon Dioxide 22 L, Creatinine 1.45 H, Calcium 7.7 L 10/28/20 03:53: RBC 2.80 L, Hgb 7.8 L, Hct 24.0 L, RDW 16.1 H, Lymphocytes % 18.4 L, Monocytes % 12.8 H, Monocytes # 1.1 H 10/29/20 03:50: Sodium 133 L, Creatinine 1.56 H 10/29/20 03:50: RBC 3.09 L, Hgb 8.3 L, Hct 26.2 L, MCH 26.8 L, MCHC 31.7 L, RDW 16.4 H, Lymphocytes % 18.0 L, Monocytes % 12.1 H, Monocytes # 1.1 H Microbiology - Entire Visit 10/27/20 14:07 Paracentesis fluid Body Fluid Culture - Preliminary Vitals: Vital Signs (12 hours) Temp Pulse Resp BP Pulse Ox 10/29/20 08:00 98.2 F 61 18 87/51 L 96 10/29/20 03:40 98.3 F 59 L 16 93/50 L 98 Weight Admit Weight 150 lb Weight 150 lb Most Recent Monitor Data Heart Rate from ECG 74 NIBP 132/74 NIBP BP-Mean 93 Respiration from ECG 18 SpO2 95 Physical Exam: The patient was seen and examined on the day of discharge. General Appearance: NAD, awake alert Eye: PERRL, anicteric sclera ENT: normocephalic atraumatic, no oropharyngeal lesions Neck: supple, symmetric, no JVD, no thyromegaly Respiratory: no wheezes, no rales, no ronchi Cardiovascular: RRR, no murmur, no gallops, no rubs Gastrointestinal: soft, non-tender, normal bowel sounds Gastrointestinal - other findings: Ascites noted Extremities: no cyanosis, no clubbing, no edema Skin: normal turgor, no lesions Neurological: no focal deficits Musculoskeletal: normal tone, normal strength PSYCH: normal affect, normal behavior Problem (1) Acute GI bleeding Code(s): K92.2 - GASTROINTESTINAL HEMORRHAGE, UNSPECIFIED Status: Acute (2) Acute blood loss anemia Code(s): D62 - ACUTE POSTHEMORRHAGIC ANEMIA Status: Acute (3) Esophageal varices with bleeding Code(s): I85.01 - ESOPHAGEAL VARICES WITH BLEEDING Status: Acute (4) GI bleed Code(s): K92.2 - GASTROINTESTINAL HEMORRHAGE, UNSPECIFIED Status: Acute (5) DM type 2 (diabetes mellitus, type 2) Status: Chronic (6) Decompensated hepatic cirrhosis Code(s): K72.90 - HEPATIC FAILURE, UNSPECIFIED WITHOUT COMA; K74.60 - UNSPECIFIED CIRRHOSIS OF LIVER Status: Chronic (7) HTN (hypertension) Code(s): I10 - ESSENTIAL (PRIMARY) HYPERTENSION Status: Chronic (8) Duodenal ulcer Status: Acute Plan Prescriptions: Spironolactone [Aldactone] 50 mg PO QAM-WM #60 tab Nadolol [Corgard] 20 mg PO DAILY #30 tab Folic Acid [Folvite] 1 mg PO DAILY #30 tab Furosemide [Lasix] 20 mg PO DAILY #30 tab Pantoprazole [Protonix] 40 mg PO BID #60 tab Multivitamin W/ Minerals [Theragran M] 1 tab PO DAILY #30 tab Cyanocobalamin (Vitamin B-12) [Vitamin B-12] 1,000 mcg PO DAILY #30 tab Ascorbic Acid [Vitamin C] 1,000 mg PO DAILY #30 tab Zinc Sulfate 220 mg PO DAILY #14 cap Home Medications: Medication Instructions Recorded Confirmed Type Ferrous Sulfate [Iron] 325 mg PO BID 10/25/20 10/25/20 History Insulin Detemir [Levemir Flextouch] 60 unit SQ DAILY 10/25/20 10/25/20 History Psyllium Husk [Metamucil] 1 tab PO BID 10/25/20 10/25/20 History Ascorbic Acid [Vitamin C] 1,000 mg PO DAILY #30 tab 10/29/20 Rx Cyanocobalamin (Vitamin B-12) 1,000 mcg PO DAILY #30 tab 10/29/20 Rx [Vitamin B-12] Folic Acid [Folvite] 1 mg PO DAILY #30 tab 10/29/20 Rx Furosemide [Lasix] 20 mg PO DAILY #30 tab 10/29/20 Rx Multivitamin W/ Minerals 1 tab PO DAILY #30 tab 10/29/20 Rx [Theragran M] Nadolol [Corgard] 20 mg PO DAILY #30 tab 10/29/20 Rx Pantoprazole [Protonix] 40 mg PO BID #60 tab 10/29/20 Rx Spironolactone [Aldactone] 50 mg PO QAM-WM #60 tab 10/29/20 Rx Zinc Sulfate 220 mg PO DAILY #14 cap 10/29/20 Rx Allergies: Penicillins Allergy (Verified 10/25/20 07:24) Activity:: Activity as Tolerated Nourishment:: Diabetic Diet, Low Sodium Diet Therapies:: Not Applicable Equipment/Supplies:: Not Applicable IV Therapy:: Not Applicable Referrals: Vikas Dewitt Chi, MD [Primary Care Provider] - Oziel Lucero MD [Active] - Disposition: HOME Quality CORE MEASURES:: N/A
[2020-10-29] MEDS: Spironolactone 25 MG TAB PO SCH (12:12)
[2020-10-29] MEDS: Nadolol 40 MG TAB PO SCH (21:08)
[2020-10-30] MEDS ORDERED: Dextrose 50% Abboject 50 ML SYRINGE ONE (05:42)
[2020-10-30] MEDS ORDERED: Ferrous Sulfate 325 MG TAB ONE (11:06)
[2020-10-30] MEDS ORDERED: Spironolactone 25 MG TAB ONE (11:06)
[2020-10-30] MEDS ORDERED: Furosemide 20 MG TAB ONE (11:07)
[2020-10-30] MEDS ORDERED: Folic Acid 1 MG TAB ONE (11:07)
[2020-10-30] MEDS ORDERED: Multivitamin W/ Minerals 1 TAB ONE (11:07)
[2020-10-30] MEDS ORDERED: Cyanocobalamin 1000 MCG/ML VIAL ONE (11:08)
[2020-10-30] MEDS ORDERED: Cyanocobalamin (Vitamin B-12) 1,000 MCG TAB ONE (11:08)
[2020-10-30] MEDS ORDERED: Lisinopril 5 MG TAB ONE (11:09)
[2020-10-30] MEDS ORDERED: Ascorbic Acid 500 mg Chewable Tablet ONE (11:09)
[2020-10-30] MEDS ORDERED: Zinc Sulfate 220 MG CAP ONE (11:10)
[2020-10-30] MEDS ORDERED: Ciprofloxacin Lactate/D5W 400 mg/200 ml Premix ONE (11:10)
[2020-10-30] MEDS: Ascorbic Acid 500 mg Chewable Tablet PO SCH (11:14)
[2020-10-30] MEDS: Ferrous Sulfate 325 MG TAB PO SCH (11:15)
[2020-10-30] MEDS: Spironolactone 25 MG TAB PO SCH (11:15)
[2020-10-30] MEDS: Zinc Sulfate 220 MG CAP PO SCH (11:16)
[2020-10-30] MEDS: Multivitamin W/ Minerals 1 TAB PO SCH (11:16)
[2020-10-30] MEDS: Lisinopril 5 MG TAB PO SCH (11:16)
[2020-10-30] MEDS: Cyanocobalamin (Vitamin B-12) 1,000 MCG TAB PO SCH (11:16)
[2020-10-30] MEDS: Folic Acid 1 MG TAB PO SCH (11:16)
[2020-10-30] MEDS: Furosemide 20 MG TAB PO SCH (11:16)
[2020-10-30] MEDS: Pantoprazole 40 MG VIAL IVP SCH (12:18)
--- NOTE | 2020-10-30 12:44 | PDOC.HOSPP ---
- Subjective Encounter Date: 10/30/20 Encounter Time: 07:45 Subjective: Patient seen and examined. No new complaints. No overnight events - Objective Vital Signs & Weight: Vital Signs (12 hours) Temp Pulse Resp BP Pulse Ox 10/30/20 11:16 57 L 10/30/20 07:56 98.1 F 57 L 19 123/59 L 95 Weight Admit Weight 150 lb Weight 150 lb Most Recent Monitor Data Heart Rate from ECG 74 NIBP 132/74 NIBP BP-Mean 93 Respiration from ECG 18 SpO2 95 I&O: 10/29/20 10/30/20 10/31/20 06:59 06:59 06:59 Output Total 1700 Balance -1700 Result Diagrams: 10/29/20 03:50 10/29/20 03:50 Additional Labs: Accuchecks 10/29/20 10/29/20 21:20 16:02 POC Glucose 284 H 179 H Hospitalist ROS - Review of Systems ENT: denies: ear pain, ear discharge, nose pain, nose discharge, nose congestion, mouth pain, mouth swelling, throat pain, throat swelling, other Respiratory: denies: cough, dry, shortness of breath, hemoptysis, SOB with excertion, pleuritic pain, sputum, wheezing, other Cardiovascular: denies: chest pain, palpitations, orthopnea, paroxysmal noc. dyspnea, edema, light headedness, other Gastrointestinal: denies: nausea, vomiting, abdominal pain, diarrhea, constipation, melena, hematochezia, other Genitourinary: denies: dysuria, frequency, incontinence, hematuria, retention, other Musculoskeletal: denies: neck pain, shoulder pain, arm pain, back pain, hand pain, leg pain, foot pain, other - Medication Medications: Active Medications Generic Name Dose Route Start Last Admin Trade Name Freq PRN Reason Stop Dose Admin Ascorbic Acid 1,000 mg 10/28/20 09:00 10/30/20 11:14 Ascorbic Acid 500 Mg Chewable Tablet PO 1,000 mg DAILY BLESSING Administration Cyanocobalamin 1,000 mcg 10/28/20 09:00 10/30/20 11:16 Cyanocobalamin (Vitamin B-12) 1,000 Mcg Tab PO 1,000 mcg DAILY BLESSING Administration Dextrose/Water 25 gm 10/25/20 10:37 10/25/20 16:26 Dextrose 50% Abboject 50 Ml Syringe SLOW IVP 25 gm PRN PRN Administration Hypoglycemia Ferrous Sulfate 325 mg 10/26/20 21:00 10/30/20 11:15 Ferrous Sulfate 325 Mg Tab PO 325 mg BID BLESSING Administration Folic Acid 1 mg 10/28/20 09:00 10/30/20 11:16 Folic Acid 1 Mg Tab PO 1 mg DAILY BLESSING Administration Furosemide 20 mg 10/27/20 09:00 10/30/20 11:16 Furosemide 20 Mg Tab PO 20 mg DAILY BLESSING Administration Ciprofloxacin/Dextrose 400 mg/ 200 mls @ 200 mls/hr 10/25/20 09:00 10/30/20 11:16 Device IVPB 200 mls Q12HR BLESSING Administration Dextrose/Water 1,000 mls @ 0 mls/hr 10/25/20 10:37 10/26/20 14:22 D5w IV 1,000 mls .Q0M PRN Administration Hypoglycemia As Directed Insulin Glargine 10 units/ 0.1 mls @ 0 mls/hr 10/28/20 21:00 10/29/20 21:08 Miscellaneous Medication SC 0.1 mls HS BLESSING Administration Insulin Glargine 10 units/ 0.1 mls @ 0 mls/hr 10/28/20 09:00 10/29/20 09:12 Miscellaneous Medication SC 0.1 mls QAM BLESSING Administration Insulin Human Lispro 0 units 10/28/20 08:32 10/29/20 06:07 Humalog 300 Units/3 Ml Vial SC 2 units .MODERATE SLIDING SC PRN Administration Moderate Correctional Scale Insulin Human Lispro 0 units 10/28/20 08:32 10/29/20 21:22 Humalog 300 Units/3 Ml Vial SC 3 unit .BEDTIME SLIDING SC PRN Administration Bedtime Correctional Scale Iron/Minerals/Multivitamins 1 tab 10/28/20 09:00 10/30/20 11:16 Multivitamin W/ Minerals 1 Tab PO 1 tab DAILY BLESSING Administration Lisinopril 5 mg 10/27/20 09:00 10/30/20 11:16 Lisinopril 5 Mg Tab PO 5 mg DAILY BLESSING Administration Morphine Sulfate 4 mg 10/25/20 23:12 10/29/20 06:15 Morphine 4 Mg/Ml Vial SLOW IVP 4 mg Q4H PRN Administration Pain Nadolol 20 mg 10/28/20 21:00 10/29/20 21:08 Nadolol 40 Mg Tab PO Not Given HS BLESSING Ondansetron HCl 4 mg 10/25/20 09:40 10/27/20 08:46 Ondansetron Pf 4 Mg/2 Ml Vial IVP 4 mg Q6H PRN Administration Nausea/Vomiting Pantoprazole Sodium 40 mg 10/28/20 09:00 10/30/20 12:18 Pantoprazole 40 Mg Vial IVP 40 mg Q12HR BLESSING Administration Senna/Docusate Sodium 2 tab 10/28/20 08:29 10/29/20 21:53 Senokot S 8.6-50 Mg Tab PO 2 tab BID PRN Administration Constipation Sodium Chloride 10 ml 10/25/20 09:00 10/30/20 11:17 Flush - Normal Saline 10 Ml Syringe IVF 10 ml Q12HR BLESSING Administration Spironolactone 50 mg 10/27/20 08:00 10/30/20 11:15 Spironolactone 25 Mg Tab PO 50 mg QAM-WM BLESSING Administration Zinc Sulfate 220 mg 10/28/20 09:00 10/30/20 11:16 Zinc Sulfate 220 Mg Cap PO 220 mg DAILY BLESSING Administration Hospitalist Exam Vitals: Vital Signs (12 hours) Temp Pulse Resp BP Pulse Ox 10/30/20 11:16 57 L 10/30/20 07:56 98.1 F 57 L 19 123/59 L 95 Weight Admit Weight 150 lb Weight 150 lb Most Recent Monitor Data Heart Rate from ECG 74 NIBP 132/74 NIBP BP-Mean 93 Respiration from ECG 18 SpO2 95 General Appearance: NAD, awake alert Eye: PERRL, anicteric sclera ENT: normocephalic atraumatic, no oropharyngeal lesions Neck: supple, symmetric, no JVD, no thyromegaly Heart: RRR, no murmur, no gallops, no rubs Respiratory: no wheezes, no rales, no ronchi Gastrointestinal: soft, non-tender, non-distended, normal bowel sounds Extremities: no cyanosis, no clubbing, no edema Skin: normal turgor, no lesions Neurological: no focal deficits Musculoskeletal: normal tone, normal strength Psychiatric: normal affect, normal behavior Hosp A/P (1) Acute GI bleeding Code(s): K92.2 - GASTROINTESTINAL HEMORRHAGE, UNSPECIFIED Status: Acute (2) Acute blood loss anemia Code(s): D62 - ACUTE POSTHEMORRHAGIC ANEMIA Status: Acute (3) Esophageal varices with bleeding Code(s): I85.01 - ESOPHAGEAL VARICES WITH BLEEDING Status: Acute (4) GI bleed Code(s): K92.2 - GASTROINTESTINAL HEMORRHAGE, UNSPECIFIED Status: Acute (5) DM type 2 (diabetes mellitus, type 2) Status: Chronic (6) Decompensated hepatic cirrhosis Code(s): K72.90 - HEPATIC FAILURE, UNSPECIFIED WITHOUT COMA; K74.60 - UNSPECIFIED CIRRHOSIS OF LIVER Status: Chronic (7) HTN (hypertension) Code(s): I10 - ESSENTIAL (PRIMARY) HYPERTENSION Status: Chronic (8) Duodenal ulcer Status: Acute - Plan old records reviewed/req Continue Protonix IV while in hospital Continue Cipro while in hospital, will consider discharge pending is ride arrangement
[2020-10-30] MEDS ORDERED: Ondansetron PF 4 MG/2 ML Vial ONE (14:50)
[2020-10-30] MEDS: Ondansetron PF 4 MG/2 ML Vial IVP PRN (14:54)
[2020-10-30] MEDS: HumaLOG 300 UNITS/3 ML VIAL SC PRN ×2 (18:04→21:32)
[2020-10-30] MEDS: Insulin Glargine 10 UNITS in Pre-Filled Syringe 1 EACH SC SCH (21:36)
[2020-10-31] MEDS: Ferrous Sulfate 325 MG TAB PO SCH ×3 (00:13→20:19)
[2020-10-31] MEDS: Pantoprazole 40 MG VIAL IVP SCH ×3 (00:13→09:41)
[2020-10-31] MEDS: Nadolol 40 MG TAB PO SCH ×2 (00:20→20:18)
[2020-10-31 04:36] LABS: #Eosinphils 0.2 thou/uL (0.0-0.7); #Monocytes 1.2 thou/uL (0.11-0.59); #Neutrophils 5.4 thou/uL (1.40-6.50); %Basophils 0.5 % (0.0-1.0); %Eosinophils 2.7 % (0.0-10.0); %Lymphocytes 22.4 % (21.0-51.0); %Monocytes 13.4 % (0.0-10.0); Mean Corpuscular HGB CONC 32.1 g/dL (32.0-36.0); Mean Corpuscular Hemoglobin 27.1 pg (27.0-31.0); Mean Corpuscular Volume 84.2 fL (78.0-98.0); Mean Platelet Volume 9.4 fL (7.4-10.4); Platelet Count 151 thou/uL (130-400); RBC Distribution Width 16.8 % (11.5-14.5); Red Blood Cell (RBC) Count 2.96 mill/uL (4.70-6.10); White Blood Cell (WBC) Count 8.8 thou/uL (4.8-10.8)
[2020-10-31 04:57] LABS: ALT (SGPT) 16 U/L (8-55); AST (SGOT) 32 U/L (5-34); Albumin 2.1 g/dL (3.4-4.8); Alkaline Phosphatase 118 U/L (40-110); Anion Gap 12 mmol/L (10-20); BUN (Urea Nitrogen) 19 mg/dL (8.4-25.7); Bilirubin, Total 1.1 mg/dL (0.2-1.2); Calc. Creatinine Clearance 37 mL/min (70-130); Calcium 7.8 mg/dL (7.8-10.44); Carbon Dioxide 22 mmol/L (23-31); Chloride 102 mmol/L (98-107); Globulin 5.4 g/dL (2.4-3.5); Glucose 153 mg/dL (83-110); Magnesium 1.4 mg/dL (1.6-2.6); Phosphorus 2.6 mg/dL (2.3-4.7); Protein, Total 7.5 g/dL (5.8-8.1); Sodium 132 mmol/L (136-145)
[2020-10-31] MEDS: HumaLOG 300 UNITS/3 ML VIAL SC PRN ×3 (06:35→21:31)
[2020-10-31] MEDS: Insulin Glargine 10 UNITS in Pre-Filled Syringe 1 EACH SC SCH ×3 (08:44→21:30)
[2020-10-31] MEDS: Zinc Sulfate 220 MG CAP PO SCH (08:48)
[2020-10-31] MEDS: Multivitamin W/ Minerals 1 TAB PO SCH (08:48)
[2020-10-31] MEDS: Lisinopril 5 MG TAB PO SCH ×2 (08:48→09:41)
[2020-10-31] MEDS: Spironolactone 25 MG TAB PO SCH (08:49)
[2020-10-31] MEDS: Ascorbic Acid 500 mg Chewable Tablet PO SCH (08:49)
[2020-10-31] MEDS: Furosemide 20 MG TAB PO SCH (08:50)
[2020-10-31] MEDS: Folic Acid 1 MG TAB PO SCH (08:50)
[2020-10-31] MEDS: Cyanocobalamin (Vitamin B-12) 1,000 MCG TAB PO SCH (08:50)
--- NOTE | 2020-10-31 11:23 | PDOC.HOSPP ---
- Subjective Encounter Date: 10/31/20 Encounter Time: 09:20 Subjective: Patient has left upper extremity swelling at IV site, no fever, - Objective Vital Signs & Weight: Vital Signs (12 hours) Temp Pulse Resp BP Pulse Ox 10/31/20 09:41 59 L 10/31/20 08:48 98.5 F 64 20 97/53 L 98 10/31/20 08:45 59 L Weight Admit Weight 150 lb Weight 150 lb Most Recent Monitor Data Heart Rate from ECG 74 NIBP 132/74 NIBP BP-Mean 93 Respiration from ECG 18 SpO2 95 Result Diagrams: 10/31/20 04:00 10/31/20 04:00 Additional Labs: Accuchecks 10/30/20 10/30/20 10/30/20 20:12 17:40 12:33 POC Glucose 231 H 233 H 262 H 10/30/20 10/30/20 10/30/20 07:51 06:44 05:35 POC Glucose 164 H 104 H 46 L* 10/28/20 10/27/20 03:44 23:00 POC Glucose 42 L* 107 H Hospitalist ROS - Review of Systems ENT: denies: ear pain, ear discharge, nose pain, nose discharge, nose congestion, mouth pain, mouth swelling, throat pain, throat swelling, other Respiratory: denies: cough, dry, shortness of breath, hemoptysis, SOB with excertion, pleuritic pain, sputum, wheezing, other Cardiovascular: denies: chest pain, palpitations, orthopnea, paroxysmal noc. dyspnea, edema, light headedness, other Gastrointestinal: denies: nausea, vomiting, abdominal pain, diarrhea, constipation, melena, hematochezia, other Genitourinary: denies: dysuria, frequency, incontinence, hematuria, retention, other Musculoskeletal: reports: arm pain. denies: neck pain, shoulder pain, back pain, hand pain, leg pain, foot pain, other Skin: denies: rash, lesions, cruzito, bruising, other - Medication Medications: Active Medications Generic Name Dose Route Start Last Admin Trade Name Freq PRN Reason Stop Dose Admin Ascorbic Acid 1,000 mg 10/28/20 09:00 10/31/20 08:49 Ascorbic Acid 500 Mg Chewable Tablet PO 1,000 mg DAILY BLESSING Administration Cyanocobalamin 1,000 mcg 10/28/20 09:00 10/31/20 08:50 Cyanocobalamin (Vitamin B-12) 1,000 Mcg Tab PO 1,000 mcg DAILY BLESSING Administration Dextrose/Water 25 gm 10/25/20 10:37 10/25/20 16:26 Dextrose 50% Abboject 50 Ml Syringe SLOW IVP 25 gm PRN PRN Administration Hypoglycemia Ferrous Sulfate 325 mg 10/26/20 21:00 10/31/20 08:50 Ferrous Sulfate 325 Mg Tab PO 325 mg BID BLESSING Administration Folic Acid 1 mg 10/28/20 09:00 10/31/20 08:50 Folic Acid 1 Mg Tab PO 1 mg DAILY BLESSING Administration Furosemide 20 mg 10/27/20 09:00 10/31/20 08:50 Furosemide 20 Mg Tab PO 20 mg DAILY BLESSING Administration Dextrose/Water 1,000 mls @ 0 mls/hr 10/25/20 10:37 10/26/20 14:22 D5w IV 1,000 mls .Q0M PRN Administration Hypoglycemia As Directed Insulin Glargine 10 units/ 0.1 mls @ 0 mls/hr 10/28/20 21:00 10/30/20 21:36 Miscellaneous Medication SC 0.1 mls HS BLESSING Administration Insulin Glargine 10 units/ 0.1 mls @ 0 mls/hr 10/28/20 09:00 10/31/20 09:44 Miscellaneous Medication SC 0.1 mls QAM BLESSING Administration Insulin Human Lispro 0 units 10/28/20 08:32 10/31/20 06:35 Humalog 300 Units/3 Ml Vial SC 2 units .MODERATE SLIDING SC PRN Administration Moderate Correctional Scale Insulin Human Lispro 0 units 10/28/20 08:32 10/30/20 21:32 Humalog 300 Units/3 Ml Vial SC 2 unit .BEDTIME SLIDING SC PRN Administration Bedtime Correctional Scale Iron/Minerals/Multivitamins 1 tab 10/28/20 09:00 10/31/20 08:48 Multivitamin W/ Minerals 1 Tab PO 1 tab DAILY BLESSING Administration Lisinopril 5 mg 10/27/20 09:00 10/31/20 09:41 Lisinopril 5 Mg Tab PO Not Given DAILY BLESSING Morphine Sulfate 4 mg 10/25/20 23:12 10/29/20 06:15 Morphine 4 Mg/Ml Vial SLOW IVP 4 mg Q4H PRN Administration Pain Nadolol 20 mg 10/28/20 21:00 10/31/20 00:20 Nadolol 40 Mg Tab PO 20 mg HS BLESSING Administration Ondansetron HCl 4 mg 10/25/20 09:40 10/30/20 14:54 Ondansetron Pf 4 Mg/2 Ml Vial IVP 4 mg Q6H PRN Administration Nausea/Vomiting Senna/Docusate Sodium 2 tab 10/28/20 08:29 10/29/20 21:53 Senokot S 8.6-50 Mg Tab PO 2 tab BID PRN Administration Constipation Sodium Chloride 10 ml 10/25/20 09:00 10/31/20 08:48 Flush - Normal Saline 10 Ml Syringe IVF 10 ml Q12HR BLESSING Administration Spironolactone 50 mg 10/27/20 08:00 10/31/20 08:49 Spironolactone 25 Mg Tab PO 50 mg QAM-WM BLESSING Administration Zinc Sulfate 220 mg 10/28/20 09:00 10/31/20 08:48 Zinc Sulfate 220 Mg Cap PO 220 mg DAILY BLESSING Administration Hospitalist Exam Vitals: Vital Signs (12 hours) Temp Pulse Resp BP Pulse Ox 10/31/20 09:41 59 L 10/31/20 08:48 98.5 F 64 20 97/53 L 98 10/31/20 08:45 59 L Weight Admit Weight 150 lb Weight 150 lb Most Recent Monitor Data Heart Rate from ECG 74 NIBP 132/74 NIBP BP-Mean 93 Respiration from ECG 18 SpO2 95 General Appearance: NAD, awake alert Eye: PERRL, anicteric sclera ENT: normocephalic atraumatic, no oropharyngeal lesions Neck: supple, symmetric, no JVD, no thyromegaly Heart: RRR, no murmur, no gallops, no rubs Respiratory: no wheezes, no rales, no ronchi Gastrointestinal: soft, non-tender, non-distended, normal bowel sounds Extremities: no clubbing, no edema Extremities - other findings: Left upper extremity swelling and tenderness noted from IV site Skin: normal turgor, no lesions Neurological: no focal deficits Musculoskeletal: normal tone, normal strength Psychiatric: normal affect, normal behavior Hosp A/P (1) Acute GI bleeding Code(s): K92.2 - GASTROINTESTINAL HEMORRHAGE, UNSPECIFIED Status: Acute (2) Acute blood loss anemia Code(s): D62 - ACUTE POSTHEMORRHAGIC ANEMIA Status: Acute (3) Esophageal varices with bleeding Code(s): I85.01 - ESOPHAGEAL VARICES WITH BLEEDING Status: Acute (4) GI bleed Code(s): K92.2 - GASTROINTESTINAL HEMORRHAGE, UNSPECIFIED Status: Acute (5) DM type 2 (diabetes mellitus, type 2) Status: Chronic (6) Decompensated hepatic cirrhosis Code(s): K72.90 - HEPATIC FAILURE, UNSPECIFIED WITHOUT COMA; K74.60 - UNSPECIFIED CIRRHOSIS OF LIVER Status: Chronic (7) HTN (hypertension) Code(s): I10 - ESSENTIAL (PRIMARY) HYPERTENSION Status: Chronic (8) Duodenal ulcer Status: Acute (9) Superficial thrombophlebitis of left upper extremity Code(s): I80.8 - PHLEBITIS AND THROMBOPHLEBITIS OF OTHER SITES Status: Acute - Plan old records reviewed/req, continue antibiotics Today we will change Protonix p.o. Discontinue IV Cipro Add doxycycline 100 g twice daily We will add ultrasound left upper extremity to rule out any septic thrombophlebitis Advised to keep left upper extremity elevated, warm compresses We will monitor while in hospital, patient does not have any right because of bad weather
--- NOTE | 2020-10-31 12:01 | ULT ---
VENOUS DOPPLER ULTRASOUND OF THE LEFT UPPER EXTREMITY: Date: 10/31/2020 HISTORY: Left arm edema and pain. TECHNIQUE: Lindsay scale ultrasound with color flow and spectral Doppler imaging of the deep venous systems of the left upper extremity performed. FINDINGS: There is good flow, compression, and normal spectral waveforms in the left internal jugular, subclavi an, axillary, brachial, radial, ulnar, and basilic veins. There is absence of compression due to intraluminal thrombus in the left cephalic vein extending from just below the level of the shoulder to the mid lower arm. IMPRESSION: 1. No evidence of deep venous thrombosis in the left upper extremity. 2. Left cephalic vein thrombosis. Discussed over the telephone with Dr. Elie Fritz at 1150 hours. CODE CR. POS: MZA
[2020-10-31] MEDS: Ondansetron ODT 4 MG TAB PO PRN (17:03)
[2020-10-31] MEDS: Doxycycline 100 MG CAP PO SCH (20:19)
[2020-11-01] MEDS: Ferrous Sulfate 325 MG TAB PO SCH ×2 (08:24→20:18)
[2020-11-01] MEDS: Doxycycline 100 MG CAP PO SCH ×2 (08:24→20:18)
[2020-11-01] MEDS: Spironolactone 25 MG TAB PO SCH (08:24)
[2020-11-01] MEDS: Multivitamin W/ Minerals 1 TAB PO SCH (08:24)
[2020-11-01] MEDS: Lisinopril 5 MG TAB PO SCH (08:24)
[2020-11-01] MEDS: Folic Acid 1 MG TAB PO SCH (08:25)
[2020-11-01] MEDS: Zinc Sulfate 220 MG CAP PO SCH (08:25)
[2020-11-01] MEDS: Ascorbic Acid 500 mg Chewable Tablet PO SCH (08:25)
[2020-11-01] MEDS: Cyanocobalamin (Vitamin B-12) 1,000 MCG TAB PO SCH (08:25)
[2020-11-01] MEDS: Furosemide 20 MG TAB PO SCH (08:25)
[2020-11-01] MEDS: Insulin Glargine 10 UNITS in Pre-Filled Syringe 1 EACH SC SCH (08:26)
[2020-11-01] MEDS ORDERED: oxyCODONE 5 MG TAB PO PRN (11:20)
--- NOTE | 2020-11-01 11:25 | PDOC.HOSPP ---
- Subjective Encounter Date: 11/01/20 Subjective: Patient is complaining of pain in his left upper extremity - Objective Vital Signs & Weight: Vital Signs (12 hours) Temp Pulse Resp BP BP Pulse Ox 11/01/20 08:42 98.0 F 54 L 18 108/54 L 97 11/01/20 08:24 56 L 11/01/20 00:00 98.3 F 56 L 20 103/54 L 98 Weight Admit Weight 150 lb Weight 150 lb Most Recent Monitor Data Heart Rate from ECG 74 NIBP 132/74 NIBP BP-Mean 93 Respiration from ECG 18 SpO2 95 Result Diagrams: 10/31/20 04:00 10/31/20 04:00 Additional Labs: Accuchecks 11/01/20 10/31/20 10/31/20 04:07 21:24 16:30 POC Glucose 147 H 253 H 281 H 10/31/20 10:56 POC Glucose 278 H Hospitalist ROS - Medication Medications: Active Medications Generic Name Dose Route Start Last Admin Trade Name Freq PRN Reason Stop Dose Admin Ascorbic Acid 1,000 mg 10/28/20 09:00 11/01/20 08:25 Ascorbic Acid 500 Mg Chewable Tablet PO 1,000 mg DAILY BLESSING Administration Cyanocobalamin 1,000 mcg 10/28/20 09:00 11/01/20 08:25 Cyanocobalamin (Vitamin B-12) 1,000 Mcg Tab PO 1,000 mcg DAILY BLESSING Administration Dextrose/Water 25 gm 10/25/20 10:37 10/25/20 16:26 Dextrose 50% Abboject 50 Ml Syringe SLOW IVP 25 gm PRN PRN Administration Hypoglycemia Doxycycline Hyclate 100 mg 10/31/20 21:00 11/01/20 08:24 Doxycycline 100 Mg Cap PO 100 mg BID BLESSING Administration Ferrous Sulfate 325 mg 10/26/20 21:00 11/01/20 08:24 Ferrous Sulfate 325 Mg Tab PO 325 mg BID BLESSING Administration Folic Acid 1 mg 10/28/20 09:00 11/01/20 08:25 Folic Acid 1 Mg Tab PO 1 mg DAILY BLESSING Administration Furosemide 20 mg 10/27/20 09:00 11/01/20 08:25 Furosemide 20 Mg Tab PO 20 mg DAILY BLESSING Administration Guaifenesin 200 mg 10/28/20 08:29 10/31/20 20:19 Guaifenesin Sf Soln 200 Mg/10 Ml Udcup PO 200 mg Q4H PRN Administration Cough Dextrose/Water 1,000 mls @ 0 mls/hr 10/25/20 10:37 10/26/20 14:22 D5w IV 1,000 mls .Q0M PRN Administration Hypoglycemia As Directed Insulin Glargine 10 units/ 0.1 mls @ 0 mls/hr 10/28/20 21:00 10/31/20 21:30 Miscellaneous Medication SC 0.1 mls HS BLESSING Administration Insulin Glargine 10 units/ 0.1 mls @ 0 mls/hr 10/28/20 09:00 11/01/20 08:26 Miscellaneous Medication SC 0.1 mls QAM BELSSING Administration Insulin Human Lispro 0 units 10/28/20 08:32 10/31/20 17:07 Humalog 300 Units/3 Ml Vial SC 6 units .MODERATE SLIDING SC PRN Administration Moderate Correctional Scale Insulin Human Lispro 0 units 10/28/20 08:32 10/31/20 21:31 Humalog 300 Units/3 Ml Vial SC 2 unit .BEDTIME SLIDING SC PRN Administration Bedtime Correctional Scale Iron/Minerals/Multivitamins 1 tab 10/28/20 09:00 11/01/20 08:24 Multivitamin W/ Minerals 1 Tab PO 1 tab DAILY BLESSING Administration Lisinopril 5 mg 10/27/20 09:00 11/01/20 08:24 Lisinopril 5 Mg Tab PO 5 mg DAILY BLESSING Administration Melatonin 3 mg 10/28/20 08:30 10/31/20 20:19 Melatonin 3 Mg Tab PO 3 mg HS PRN Administration Insomnia Morphine Sulfate 4 mg 10/25/20 23:12 10/29/20 06:15 Morphine 4 Mg/Ml Vial SLOW IVP 4 mg Q4H PRN Administration Pain Nadolol 20 mg 10/28/20 21:00 10/31/20 20:18 Nadolol 40 Mg Tab PO 20 mg HS BLESSING Administration Ondansetron HCl 4 mg 10/25/20 09:40 10/30/20 14:54 Ondansetron Pf 4 Mg/2 Ml Vial IVP 4 mg Q6H PRN Administration Nausea/Vomiting Ondansetron HCl 4 mg 10/28/20 08:29 10/31/20 17:03 Ondansetron Odt 4 Mg Tab PO 4 mg Q6H PRN Administration Nausea/Vomiting Pantoprazole Sodium 40 mg 10/31/20 21:00 11/01/20 08:25 Pantoprazole 40 Mg Tab PO 40 mg BID BLESSING Administration Senna/Docusate Sodium 2 tab 10/28/20 08:29 10/29/20 21:53 Senokot S 8.6-50 Mg Tab PO 2 tab BID PRN Administration Constipation Sodium Chloride 10 ml 10/25/20 09:00 11/01/20 08:26 Flush - Normal Saline 10 Ml Syringe IVF Not Given Q12HR BLESSING Spironolactone 50 mg 10/27/20 08:00 11/01/20 08:24 Spironolactone 25 Mg Tab PO 50 mg QAM-WM BLESSING Administration Zinc Sulfate 220 mg 10/28/20 09:00 11/01/20 08:25 Zinc Sulfate 220 Mg Cap PO 220 mg DAILY BLESSING Administration Hospitalist Exam Vitals: Vital Signs (12 hours) Temp Pulse Resp BP BP Pulse Ox 11/01/20 08:42 98.0 F 54 L 18 108/54 L 97 11/01/20 08:24 56 L 11/01/20 00:00 98.3 F 56 L 20 103/54 L 98 Weight Admit Weight 150 lb Weight 150 lb Most Recent Monitor Data Heart Rate from ECG 74 NIBP 132/74 NIBP BP-Mean 93 Respiration from ECG 18 SpO2 95 General Appearance: NAD, awake alert Eye: PERRL, anicteric sclera ENT: normocephalic atraumatic, no oropharyngeal lesions Neck: supple, symmetric, no JVD, no thyromegaly Heart: RRR, no murmur, no gallops, no rubs, normal peripheral pulses Respiratory: CTAB, no wheezes, no rales, no ronchi Gastrointestinal: soft, non-tender, non-distended, normal bowel sounds Extremities: no cyanosis, no clubbing, no edema Hosp A/P (1) Acute GI bleeding Code(s): K92.2 - GASTROINTESTINAL HEMORRHAGE, UNSPECIFIED Status: Acute (2) Esophageal varices with bleeding Code(s): I85.01 - ESOPHAGEAL VARICES WITH BLEEDING Status: Acute (3) Superficial thrombophlebitis of left upper extremity Code(s): I80.8 - PHLEBITIS AND THROMBOPHLEBITIS OF OTHER SITES Status: Acute (4) DM type 2 (diabetes mellitus, type 2) Status: Chronic (5) HTN (hypertension) Code(s): I10 - ESSENTIAL (PRIMARY) HYPERTENSION Status: Chronic - Plan Plan for today 11/01 Patient recently had a GI bleed post versus banding------ continue with Protonix twice daily Endocrinology--- he is diabetic--- continue with current insulin regimen DVT--- for his left cephalic vein thrombosis advised him to keep it elevated and will provide him with pain control, there was no evidence of DVT on the Doppler of the left upper extremity. Patient is awaiting a form of transportation to be able to go home.
[2020-11-01] MEDS: HumaLOG 300 UNITS/3 ML VIAL SC PRN ×2 (11:58→20:28)
[2020-11-01] MEDS: Nadolol 40 MG TAB PO SCH (20:18)
[2020-11-01] MEDS: Ondansetron ODT 4 MG TAB PO PRN (20:18)
[2020-11-01] MEDS ORDERED: Ferrous Sulfate 325 MG TAB PO SCH (21:00)
[2020-11-02 05:12] LABS: #Eosinphils 0.2 thou/uL (0.0-0.7); #Monocytes 0.8 thou/uL (0.11-0.59); #Neutrophils 4.4 thou/uL (1.40-6.50); %Basophils 0.6 % (0.0-1.0); %Eosinophils 2.7 % (0.0-10.0); %Lymphocytes 26.9 % (21.0-51.0); %Monocytes 11.1 % (0.0-10.0); %Neutrophils 58.8 % (42.0-75.0); Hemoglobin 8.8 g/dL (14.0-18.0); Mean Corpuscular HGB CONC 31.6 g/dL (32.0-36.0); Mean Corpuscular Hemoglobin 26.7 pg (27.0-31.0); Mean Corpuscular Volume 84.5 fL (78.0-98.0); Mean Platelet Volume 10.4 fL (7.4-10.4); Platelet Count 128 thou/uL (130-400); RBC Distribution Width 16.5 % (11.5-14.5); Red Blood Cell (RBC) Count 3.27 mill/uL (4.70-6.10); White Blood Cell (WBC) Count 7.4 thou/uL (4.8-10.8)
[2020-11-02 05:34] LABS: Anion Gap 13 mmol/L (10-20); BUN (Urea Nitrogen) 17 mg/dL (8.4-25.7); Calc. Creatinine Clearance 40 mL/min (70-130); Calcium 7.8 mg/dL (7.8-10.44); Carbon Dioxide 20 mmol/L (23-31); Chloride 104 mmol/L (98-107); Glucose 221 mg/dL (83-110); Sodium 133 mmol/L (136-145)
[2020-11-02] MEDS: HumaLOG 300 UNITS/3 ML VIAL SC PRN ×2 (06:54→11:35)
[2020-11-02] MEDS ORDERED: Spironolactone 25 MG TAB PO SCH (08:00)
[2020-11-02] MEDS: Ascorbic Acid 500 mg Chewable Tablet PO SCH (08:14)
[2020-11-02] MEDS: Ferrous Sulfate 325 MG TAB PO SCH (08:14)
[2020-11-02] MEDS: Cyanocobalamin (Vitamin B-12) 1,000 MCG TAB PO SCH (08:14)
[2020-11-02] MEDS: Spironolactone 25 MG TAB PO SCH (08:15)
[2020-11-02] MEDS: Multivitamin W/ Minerals 1 TAB PO SCH (08:15)
[2020-11-02] MEDS: Folic Acid 1 MG TAB PO SCH (08:15)
[2020-11-02] MEDS: Lisinopril 5 MG TAB PO SCH (08:15)
[2020-11-02] MEDS: Doxycycline 100 MG CAP PO SCH (08:15)
[2020-11-02] MEDS: Zinc Sulfate 220 MG CAP PO SCH (08:15)
[2020-11-02] MEDS: Furosemide 20 MG TAB PO SCH (08:15)
[2020-11-02] MEDS ORDERED: Ascorbic Acid 500 mg Chewable Tablet PO SCH (09:00)
[2020-11-02] MEDS ORDERED: Insulin Glargine 60 UNITS in Pre-Filled Syringe 1 EACH SC SCH (09:00)
[2020-11-02] MEDS ORDERED: Zinc Sulfate 220 MG CAP PO SCH (09:00)
[2020-11-02] MEDS ORDERED: Multivitamin W/ Minerals 1 TAB PO SCH (09:00)
[2020-11-02] MEDS ORDERED: Folic Acid 1 MG TAB PO SCH (09:00)
[2020-11-02] MEDS ORDERED: Furosemide 20 MG TAB PO SCH (09:00)
[2020-11-02] MEDS ORDERED: Nadolol 40 MG TAB PO SCH (09:00)
[2020-11-02] MEDS ORDERED: Insulin Glargine 60 UNITS in Pre-Filled Syringe SC SCH (09:00)
[2020-11-02] MEDS ORDERED: Cyanocobalamin (Vitamin B-12) 1,000 MCG TAB PO SCH (09:00)
[2020-11-02] MEDS ORDERED: Lantus 1000 UNITS/10 ML VIAL SC SCH ×2 (09:00)
[2020-11-02 11:49] VITALS: BP 115/56; TEMP 98
--- NOTE | 2020-11-02 17:49 | PDOC.DS.DS ---
Provider Date of Admission: 10/25/20 10:01 Date of Discharge: 11/02/20 Admitting Provider: Krsitina Vega MD Consultations: Gastroentrology Primary Care Physician: Vikas Dewitt MD Course Hospital Course: 75-year-old male with PMH of DM type 2, HTN, Cirrhosis (with hx of ascites), fatty liver disease, and ?liver nodules who presents to the ED from [facility] with vomiting blood since yesterday. He said he vomited bright red blood 2 times yesterday and one time today. 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 Patient was admitted in ICU, he was treated with Protonix drip and octreotide drip, he was also given IV fluid, he was also given ciprofloxacin for SBP prophylaxis, While in hospital we also did paracentesis but negative for SBP, he is given medicine to reduce portal hypertension. 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 Patient is given oral medication p.o., patient developed a superficial thrombophlebitis, while he was in the hospital he remained stable his discharge was slightly delayed by the weather, today patient's son was able to pick him up. Resuscitation Status: 10/25/20 10:34 Resuscitation Status Routine Resuscitation Status: DNAR: NO Resuscitation Discussed with: Patient Lab Results: 11/02/20 04:33 11/02/20 04:33 Abnormal Lab Results - Last 48 hrs 11/02/20 04:33: Sodium 133 L, Carbon Dioxide 20 L, Creatinine 1.47 H 11/02/20 04:33: RBC 3.27 L, Hgb 8.8 L, Hct 27.7 L, MCH 26.7 L, MCHC 31.6 L, RDW 16.5 H, Plt Count 128 L, Monocytes % 11.1 H, Monocytes # 0.8 H Microbiology - Entire Visit 10/27/20 14:07 Paracentesis fluid Body Fluid Culture - Final Vitals: Vital Signs (12 hours) Temp Pulse Resp BP Pulse Ox 11/02/20 10:47 98.0 F 58 L 16 115/56 L 100 11/02/20 08:15 51 L 11/02/20 07:50 98.2 F 51 L 18 115/60 100 Weight Admit Weight 150 lb Weight 150 lb Most Recent Monitor Data Heart Rate from ECG 74 NIBP 132/74 NIBP BP-Mean 93 Respiration from ECG 18 SpO2 95 Physical Exam: The patient was seen and examined on the day of discharge. General Appearance: NAD Eye: PERRL, anicteric sclera ENT: normocephalic atraumatic Neck: supple, symmetric, no JVD Respiratory: CTAB, no wheezes, no rales Cardiovascular: RRR, no murmur, no gallops Gastrointestinal: soft, non-tender, non-distended Extremities: no cyanosis, no clubbing Problem (1) Acute GI bleeding Code(s): K92.2 - GASTROINTESTINAL HEMORRHAGE, UNSPECIFIED Status: Acute (2) Esophageal varices with bleeding Code(s): I85.01 - ESOPHAGEAL VARICES WITH BLEEDING Status: Acute (3) Superficial thrombophlebitis of left upper extremity Code(s): I80.8 - PHLEBITIS AND THROMBOPHLEBITIS OF OTHER SITES Status: Acute (4) DM type 2 (diabetes mellitus, type 2) Status: Chronic (5) HTN (hypertension) Code(s): I10 - ESSENTIAL (PRIMARY) HYPERTENSION Status: Chronic Time Spent in discharge related activities (mins): 45 Plan Prescriptions: Spironolactone [Aldactone] 50 mg PO QA- #60 tab Nadolol [Corgard] 20 mg PO DAILY #30 tab Folic Acid [Folvite] 1 mg PO DAILY #30 tab Furosemide [Lasix] 20 mg PO DAILY #30 tab Pantoprazole [Protonix] 40 mg PO BID #60 tab Multivitamin W/ Minerals [Theragran M] 1 tab PO DAILY #30 tab Cyanocobalamin (Vitamin B-12) [Vitamin B-12] 1,000 mcg PO DAILY #30 tab Ascorbic Acid [Vitamin C] 1,000 mg PO DAILY #30 tab Zinc Sulfate 220 mg PO DAILY #14 cap Home Medications: Medication Instructions Recorded Confirmed Type Ferrous Sulfate [Iron] 325 mg PO BID 10/25/20 10/25/20 History Insulin Detemir [Levemir Flextouch] 60 unit SQ DAILY 10/25/20 10/25/20 History Psyllium Husk [Metamucil] 1 tab PO BID 10/25/20 10/25/20 History Ascorbic Acid [Vitamin C] 1,000 mg PO DAILY #30 tab 10/29/20 Rx Cyanocobalamin (Vitamin B-12) 1,000 mcg PO DAILY #30 tab 10/29/20 Rx [Vitamin B-12] Folic Acid [Folvite] 1 mg PO DAILY #30 tab 10/29/20 Rx Furosemide [Lasix] 20 mg PO DAILY #30 tab 10/29/20 Rx Multivitamin W/ Minerals 1 tab PO DAILY #30 tab 10/29/20 Rx [Theragran M] Nadolol [Corgard] 20 mg PO DAILY #30 tab 10/29/20 Rx Pantoprazole [Protonix] 40 mg PO BID #60 tab 10/29/20 Rx Spironolactone [Aldactone] 50 mg PO QAM-WM #60 tab 10/29/20 Rx Zinc Sulfate 220 mg PO DAILY #14 cap 10/29/20 Rx Allergies: Penicillins Allergy (Verified 10/25/20 07:24) Discharge Instructions:: Please call your audio video repairer in the [facility] and secure a follow up appointment with him as instructed by physician. Notify you physician with any questions or concerns. Activity:: Activity as Tolerated Nourishment:: Diabetic Diet, Low Sodium Diet Therapies:: Not Applicable Equipment/Supplies:: Not Applicable IV Therapy:: Not Applicable Referrals: Vikas Dewitt Chi, MD [Primary Care Provider] - Oziel Lucero MD [Active] - Disposition: HOME Quality CORE MEASURES:: N/A
--- NOTE | 2020-11-03 05:51 | PQF ---
Dear :Casper Cavazos Date 11/03/2020 Please exercise your independent, professional judgment in responding to the clarification form. Clinical indicators are provided on the bottom of this form for your review Can you please further clarify the etiology of esophageal varices? Please check appropriate box(es): [ y ] Alcoholic Liver Cirrhosis [ y ] Portal hypertension [ ] Other diagnosis please specify [ ] Unable to determine Physician Signature: Date/Time: For continuity of documentation, please document condition throughout progress notes and discharge summary. Thank You. To be completed by CDI/Coding staff for physician review: Present Clinical Indicators - Signs / Symptoms / Labs Results and Location in Medical Record [ x ] Hematemesis H and P pg.1 [ x ] Large grade 2 varices seen in distal esophagus OP report pg.2 [ x ] Moderate to severe portal hypertensive gastropathy OP report pg.2 [ x ] Esophageal varices with hemorrhage PN pg.1 10/26 [ x ] Cirrhosis with ascites Hospitalist PN pg.5 10/27 [ x ] He states he used to drink alcohol occasionally, stop 1 year ago H and P pg.1 [ x ] Esophageal varices with bleeding due to cirrhosis of the liver Hospitalist PN pg.5 10/28 [ x ] He was also found with moderate to severe portal hypertensive gastropathy DS pg.1 [ x ] He is alcoholic cirrhosis of the liver with portal hypertension DS pg.1 Present Risk Factors Results and Location in Medical Record [ x ] Hx of cirrhosis H and P pg.1 [ x ] GERD H and P pg.1 [ x ] HTN H and P pg.1 [ x ] DM H and P pg.1 [ x ] 75 years old H and P pg.1 [ x ] Fatty liver H and P pg.1 [ x ] Decompensated hepatic cirrhosis H and P pg.4 Present Treatments Results and Location in Medical Record [ x ] IV Fluids MAR [ x ] GI Consult Nic Springer [ x ] EGD with Band ligation OP report pg.1 [ x ] Paracentesis Paracentesis Ultrasiun d 10/27 [ x ] Aldactone 50mg PO [ x ] Lasix 20mg PO CDS/Air Filler Signature: BladimirSreekanth crandall Phone #: ext [phone] Date 11/03/2020 This is a permanent part of the Medical Record MTDD
== END 2020-11-02 14:25 | disposition home or self-care (01) | DRG 441 ==
LOC: ERS 06:53 → ERHOLD 10:01 → CCU 15:09 → 2SW 10-27 16:02
PROVIDERS: ADMIT Internal Medicine; ATTEND Internal Medicine
PROC: 06L38CZ Occlusion of Esophageal Vein with Extraluminal Device, Via Natural or Artificial Opening Endoscopic (ICD-10-PCS; principal; 2020-10-25)
PROC: 0W9G3ZZ Drainage of Peritoneal Cavity, Percutaneous Approach (ICD-10-PCS; 2020-10-27)
DX: K76.6 Portal hypertension (principal); U07.1 COVID-19; I85.11 Secondary esophageal varices with bleeding; K86.1 Other chronic pancreatitis; N17.9 Acute kidney failure, unspecified; E87.2 Acidosis; I82.622 Acute embolism and thrombosis of deep veins of left upper extremity; K26.3 Acute duodenal ulcer without hemorrhage or perforation; K70.31 Alcoholic cirrhosis of liver with ascites; K74.60 Unspecified cirrhosis of liver; K31.89 Other diseases of stomach and duodenum; E11.9 Type 2 diabetes mellitus without complications; I10 Essential (primary) hypertension; K72.90 Hepatic failure, unspecified without coma; D64.9 Anemia, unspecified; K76.0 Fatty (change of) liver, not elsewhere classified; K21.9 Gastro-esophageal reflux disease without esophagitis; Z88.0 Allergy status to penicillin; Z90.49 Acquired absence of other specified parts of digestive tract; Z79.4 Long term (current) use of insulin; Z79.899 Other long term (current) drug therapy
CPT/HCPCS: 0240U; 36415; 36416; 49083; 76705; 80048; 80053; 82040; 82247; 82248; 83605; 83735; 84075; 84100; 84132; 84157; 84450; 84460; 85025; 85060; 85384; 85610; 86850; 86900; 86901; 87070; 87205; 88112; 89051; 96365; 96366; 96375; C9113; J0744; J1815; J2270; J2354; J2405; J2704; J2765; J3010; J3490; J7050; Q0162; S0028